=== PATIENT | female | born 1985 | race Hispanic/Latino ===

== ENCOUNTER 2016-04-12 11:30 | Emergency (ER) | payer OTHER ==
[~2016-04-12] VITALS: Ht 165.1 cm; Wt 99.8 kg
[~2016-04-12 11:30] MED LIST: AMOXICILLIN500 MG PO; BACTRIM DS TAB1 EACH PO; BENTYL10 M1 PO; BENTYL10 MG PO; BENTYL20 M1 PO; BENTYL20 MG PO; CIPRO500 MG PO; DONNATAL TABL16.2 MG PO; DONNATAL TABS1 TAB PO; FERRALET 901 TAB PO; FLEXERIL10 MG PO; FLUVIRIN 245 MCG/0.1 IM; HYDROCODONE/ACE1 TA1 PO; IBU800 MG PO; IBUPROFEN800 M1 PO; IBUPROFEN800 MG PO; LOMOTIL 0.025 M1 TAB PO; MACROBID 100 M100 MG PO; MEDROL DOSEPAK1 PAC PO; MIRENA1 EACH; MONTELUKAST SOD10 MG PO; MOTRIN800 MG PO; PATADAY2.5 ML OPH; PHENERGAN25 M1 PO; PREDNISONE20 M1 PO; PRENATAL1 TA2 PO; PRILOSEC OTC20 MG PO; PROAIR HFA8.5 GM INH; PYRIDIUM100 M1 PO; ROBITUSSIN W/CO10 ML PO; TRAMADOL HCL50 M1 PO; TRAMADOL50 MG PO; TYLENOL #31 TAB PO; VICODIN5-300 PO; ZITHROMAX250 M2 PO; ZOFRAN 4 MG TABL4 MG PO; ZOFRAN ODT4 M1 PO; ZOFRAN ODT4 M1 SL; ZOFRAN ODT4 MG PO; ZOFRAN ODT4 MG SL; ZOFRAN4 M1 SL; ZOFRAN4 M2 PO; ZYRTEC10 M3 PO
[2016-04-12 11:41] VITALS: BP 117/82
--- NOTE | 2016-04-12 14:02 | ED INFLUENZA/URI COMPLAINT ---
History of Present Illness General Chief Complaint: Upper Respiratory Sx/Fever Stated Complaint: URI COUGH Source: patient, old records Exam Limitations: no limitations Vital Signs & Intake/Output Vital Signs & Intake/Output Vital Signs Date Time Temp Pulse Resp B/P Pulse O2 O2 Flow FiO2 Ox Delivery Rate 04/12 1141 97.1 92 20 117/82 96 Room Air Allergies Coded Allergies: acetaminophen (From PERCOCET) (Severe, N/V 02/01/16) oxycodone (VOMITING 05/22/15) Reconcile Medications Albuterol Sulfate (Albuterol Sulfate Hfa) 0.09 MG/Actuation ANGIE 2 PUFF INH PRN SOB (Reported) 90 MCG PER PUFF Azithromycin (Zithromax) 250 MG TABLET 1 DP PO AD bronchitis 2 the first day followed by 1 for days 2-5 CETIRIZINE HCL (Zyrtec) 10 MG CAPSULE 1 CAP PO DAILY ALLERGIES (Reported) Dicyclomine Hydrochloride (Bentyl) 10 MG CAPSULE 1 CAP PO TID PRN abdominal spasms Ibuprofen 800 MG TABLET 1 TAB PO TID PRN PAIN Levonorgestrel (Mirena) 1 EACH IUD CONTROL (Reported) Nitrofurantoin Monohyd/M-Cryst (Macrobid 100 MG Capsule) 100 MG CAPSULE 1 CAP PO BID PRN UTI with food Olopatadine HCl (Pataday) 2.5 ML DROPS 1 GTT OPH DAILY ALLERGIES (Reported) Ondansetron (Zofran Odt) 4 MG TAB.RAPDIS 1 TAB SL TID PRN nausea Phenazopyridine HCl (Pyridium) 100 MG TABLET 1 TAB PO TID PRN DYSURIA Phenobarb/Hyoscy/Atropine/Scop ( Tablet) 16.2 MG TABLET 1 TAB PO TID PRN ABDOMINAL PAIN Prednisone 20 MG TABLET 2 TAB PO DAILY bronchitis Sulfamethoxazole/Trimethoprim (Bactrim Ds Tablet) 800 MG-160 MG TABLET 1 TAB PO BID uti Triage Note: PT C/O COLD SYMPTOMS X 2 DAYS. PT STATES HER BODY ACHES AND HER ASTHMA IS ACTING UP Triage Nurses Notes Reviewed? yes : No Patient currently breastfeeds: No HPI: 31-year-old female history of asthma here with complaints of URI symptoms cough congestion and sneezing runny nose bodyaches, productive sputum and rhinorrhea for the last 2 days. Tactile fever. Her mother is also here and sick with the same symptoms. She tried [id number] medication with minimal relief (ZARA MACHUCA) Past History Travel History Traveled to [place] past 21 day No Medical History Any Pertinent Medical History? see below for history Neurological: NONE EENT: allergies Cardiovascular: NONE Respiratory: asthma Gastrointestinal: GASTRITIS Hepatic: cholecystitis, CHOLYCYSTECTOMY Renal: nephrolithiasis Musculoskeletal: NONE Psychiatric: NONE Endocrine: NONE Blood Disorders: NONE BACK HANGER/Reproductive: NONE Surgical History Surgical History: cholecystectomy, , tonsillectomy tubes in the ear Psychosocial History What is your primary language Uzbek Tobacco Use: Current Daily Use Daily Tobacco Use Amount/Type: => 5 Cigarettes daily ETOH Use: denies use Illicit Drug Use: denies illicit drug use Family History Hx Contributory? No (ZARA MACHUCA) Review of Systems Review of Systems Constitutional: Reports: see HPI. EENTM: Reports: see HPI. Respiratory: Reports: see HPI. Cardiovascular: Reports: no symptoms. GI: Reports: no symptoms. Genitourinary: Reports: no symptoms. Musculoskeletal: Reports: no symptoms. Skin: Reports: no symptoms. Neurological/Psychological: Reports: no symptoms. Hematologic/Endocrine: Reports: no symptoms. Immunologic/Allergic: Reports: no symptoms. All Other Systems: Reviewed and Negative (ZARA MACHUCA) Physical Exam Physical Exam General Appearance: well developed/nourished Ears, Nose, Throat: moist mucous membrane, hearing grossly normal, Tympanic normal, pharynx normal, nasal congestion, nasal drainage Comments: Well-developed well-nourished person in no acute distress Neck: Supple, no lymphadenopathy, normal range of motion without pain or tenderness Back: Nontender, no CVA tenderness. Full range of motion Cardiovascular: Regular rate and rhythms no murmurs, normal JVP Respiratory: Chest nontender. No respiratory distress. Breath sounds clear to auscultation bilaterally Abdomen: Soft, nontender nondistended, no appreciable organomegaly. Normal bowel sounds. No ascites Extremity: No edema, no calf tenderness to palpation, normal and equal pulses. Neuro: Alert oriented x3, motor sensory normal, cranial nerves II through XII grossly intact. Skin: No appreciable rash on exposed skin, skin is warm and dry. Psych: Mood and affect is normal, memory and judgment is normal. Core Measures Severe Sepsis Present: No Septic Shock Present: No (ZARA MACHUCA) Progress Differential Diagnosis: influenza, meningitis, neutropenia, otitis, pneumonia, pharyngitis, sinusitis Plan of Care: Orders Procedure Date/time Status RAPID VIRAL INFLUENZA A 04/12 1357 Complete Initial ED EKG: none Comments: FLU TEST NEG. TX WITH ZITHROMAX FOR BRONCHITIS, + SMOKER (ZARA MACHUCA) Departure Departure Disposition: HOME OR SELF CARE Condition: Stable Clinical Impression Primary Impression: Bronchitis Referrals: JOCELYN MESSINA,MEDINA (PCP/Family) Additional Instructions: Take antibiotics for your infection as directed. Take prednisone for body aches and cough Use [id number] multisystem cold medication as needed. Motrin and Tylenol as needed for fever. Drink plenty of fluids. Return or follow-up with your doctor if not better in the next 3-5 days or if you're having continued worsening fevers, nausea, vomiting, shortness of breath, abdominal pain, difficulty swallowing or drinking or worsening flulike illness. Departure Forms: Customer Survey General Discharge Information Prescriptions: Current Visit Scripts Azithromycin (Zithromax) 1 DP PO AD #6 TAB 2 the first day followed by 1 for days 2-5 Prednisone 2 TAB PO DAILY #6 TAB (ZARA MACHUCA) PA/ROOF SERVICE TECHNICIAN Co-Sign Statement Statement: ED Attending supervision documentation- [] I saw and evaluated the patient. I have also reviewed all the pertinent lab results and diagnostic results. I agree with the findings and the plan of care as documented in the PA's/ROOF SERVICE TECHNICIAN's documentation. [X] I have reviewed the ED Record and agree with the PA's/ROOF SERVICE TECHNICIAN's documentation. [] Additions or exceptions (if any) to the PAs/ROOF SERVICE TECHNICIAN's note and plan are summarized below: [] (JUSTIN MESSINA,MARIANO Raza)
[2016-04-12] MEDS ORDERED: PREDNISONE20 M1 PO (14:41)
[2016-04-12] MEDS ORDERED: ZITHROMAX250 M2 PO (14:41)
== END 2016-04-12 14:46 ==
LOC: ERH 11:30
DX: J40 Bronchitis, not specified as acute or chronic (principal); Z72.0 Tobacco use
CPT/HCPCS: 87804; 87804-59; J3101

== ENCOUNTER 2016-04-14 13:11 | Emergency (ER) | payer OTHER ==
[~2016-04-14] VITALS: Ht 165.1 cm; Wt 99.8 kg
--- NOTE | 2016-04-14 13:29 | ED CARDIAC/CP/PALPITATIONS ---
History of Present Illness General Chief Complaint: Chest Pain Stated Complaint: CHEST PAIN Source: patient, old records Exam Limitations: no limitations Vital Signs & Intake/Output Vital Signs & Intake/Output Vital Signs Date Time Temp Pulse Resp B/P Pulse O2 O2 Flow FiO2 Ox Delivery Rate 04/14 1442 97.8 74 16 144/68 98 Room Air 04/14 1440 98 04/14 1321 97.5 102 16 137/84 98 Room Air Allergies Coded Allergies: ketorolac (From TORADOL) (Intermediate, rash 04/14/16) tramadol (Intermediate, RASH 04/14/16) oxycodone (VOMITING 05/22/15) Reconcile Medications Albuterol Sulfate (Albuterol Sulfate Hfa) 0.09 MG/Actuation ANGIE 2 PUFF INH PRN SOB (Reported) 90 MCG PER PUFF Azithromycin (Zithromax) 250 MG TABLET 1 DP PO AD bronchitis 2 the first day followed by 1 for days 2-5 CETIRIZINE HCL (Zyrtec) 10 MG CAPSULE 1 CAP PO DAILY ALLERGIES (Reported) Fexofenadine HCl (Santa Allergy) 180 MG TABLET 1 TAB PO DAILY ALLERGIES ( Reported) Levonorgestrel (Mirena) 1 EACH IUD CONTROL (Reported) Olopatadine HCl (Pataday) 2.5 ML DROPS 1 GTT OPH DAILY ALLERGIES (Reported) Ondansetron (Zofran Odt) 4 MG TAB.RAPDIS 1 TAB SL TID PRN nausea Triage Note: PT STATES THAT SHE WAS SEEN AT [facility] YESTERDAY FOR ABD PAIN, STATES THAT HER HR WAS 128, STATES THAT THEY DIAGNOSED HER WITH A STOMACH BUG , THIS AM AROUD 0900 WHILE AT REST IN BED SHE STARTED WITH L SIDE CP, PAIN HAS BEEN CONSTANT. DESCRIBES STABBING AND NON RADIATING; HR 102 Triage Nurses Notes Reviewed? yes Onset: Abrupt Duration: day(s): (1), constant Timing: recent history Quality/Severity: mild, moderate, aching Location: central Radiation: no radiation Activities at Onset: rest Associated Symptoms: denies : No Patient currently breastfeeds: No HPI: 31-year-old female well-known to this ER presents to emergency room complaining of palpitations and substernal chest heaviness that came on while watching cartoons this morning. The patient states that she was seen yesterday at [facility] for generalized abdominal pain nausea vomiting and diarrhea that has been improving. She was seen here 2 days ago as well for a cough which has resolved. She denies any shortness of breath or pain with inspiration. She states yesterday she told them that while she was having the belly pain she is having palpitations as well. She states the symptoms resolved and was discharged home. She denies any fever chills like pain or swelling. The symptoms are not worse with lying flat or sitting upright there are no modifying factors or associated symptoms otherwise. (GURMEET CALDERA) Past History Travel History Traveled to [facility] past 21 day No Medical History Any Pertinent Medical History? see below for history Neurological: NONE EENT: allergies Cardiovascular: NONE Respiratory: asthma Gastrointestinal: GASTRITIS Hepatic: cholecystitis, CHOLYCYSTECTOMY Renal: nephrolithiasis Musculoskeletal: NONE Psychiatric: NONE Endocrine: NONE Blood Disorders: NONE MOTH EXTERMINATOR/Reproductive: NONE Surgical History Surgical History: cholecystectomy, , tonsillectomy tubes in the ear Psychosocial History What is your primary language Gabonese Tobacco Use: Current Daily Use Daily Tobacco Use Amount/Type: => 5 Cigarettes daily ETOH Use: denies use Illicit Drug Use: denies illicit drug use Family History Hx Contributory? No (GURMEET CALDERA) Review of Systems Review of Systems Constitutional: Reports: see HPI. All Other Systems: Reviewed and Negative Comments Review of systems: See HPI, All other systems negative. Constitutional, no chills no fever, no malaise HEENT: No visual changes no sore throat no congestion, Cardiovascular: chest pain , no palpitation Skin, no jaundice no rashes, no change in skin Respiratory: No dyspnea no cough no sputum GI: nausea vomiting, diarrhea : No dysuria Muscle skeletal: No joint pain, no joint swelling, no back pain Neurologic: No numbness no headache Psych: No stress Heme/endocrine: No bruising no bleeding Immunology: No lymphadenopathy (GURMEET CALDERA) Physical Exam Physical Exam General Appearance: well developed/nourished, no apparent distress, alert, awake , anxious Cardiovascular: regular rate/rhythm Comments: Well-developed well-nourished person in no acute distress HEENT: Normal EENT exam; PERRL, EOMI, HEAD is atraumatic. moist mucous membranes. Neck: Supple, no lymphadenopathy, normal range of motion Back: Nontender, no CVA tenderness. Full range of motion Cardiovascular: Regular rate and rhythms no murmurs rubs or gallops, normal JVP Respiratory: Chest tender.There were no bony deformities, no asymmetry. No respiratory distress. Patient speaking in full complete sentences. Breath sounds clear to auscultation bilaterally: NO W/R/R Abdomen: Soft, nontender nondistended, no appreciable organomegaly. Normal bowel sounds. No rebound/guarding Extremity: No edema, full range of motion of extremities, normal and equal pulses bilaterally, 5 out of 5 strength noted to bilateral upper and lower extremities Neuro: Alert oriented x3, motor sensory normal XII grossly intact. There were no obvious focal neurologic abnormalities. Skin: No appreciable rash on exposed skin, skin is warm and dry. Psych: Mood and affect is normal, memory and judgment is normal. Core Measures ACS in differential dx? Yes Severe Sepsis Present: No Septic Shock Present: No All Positive = PERC Ruled Out: Positive: age < 50 years, heart rate < 100 bpm, O2 sat > 94%, no hemoptysis, no hormone use, no prior DVT or PE, no unilateral leg swellin, no surgery/trauma w/ in 4w. (ANDREE BAUMAN,GURMEET) Progress Differential Diagnosis: AMI, musculoskeletal pain, myocarditis, pancreatitis, pericarditis, pneumonia, pneumothorax, pulmonary embolism, PVCs/PACs, unstable angina, anxiety Plan of Care: Orders Procedure Date/time Status TROPONIN LEVEL 04/14 1324 Complete COMPREHENSIVE METABOLIC PANEL 04/14 1324 Complete CBC WITHOUT DIFFERENTIAL 04/14 1324 Complete EKG 04/14 1313 Active Laboratory Tests 04/14/16 1336: Anion Gap 8, Estimated GFR > 60, BUN/Creatinine Ratio 12.5, Glucose 96, Calcium 9.4, Total Bilirubin 0.3, AST 19, ALT 32, Alkaline Phosphatase 92, Troponin I < 0.01, Total Protein 7.3, Albumin 4.1, Globulin 3.2, Albumin/Globulin Ratio 1.3, CBC w Diff NO MAN DIFF REQ, RBC 4.31, MCV 91.2, MCH 30.7, RDW 12.9, MPV 10.9 H, Gran % 60.1, Lymphocytes % 29.7, Monocytes % 6.7, Eosinophils % 2.6, Basophils % 0.9, Absolute Granulocytes 6.1, Absolute Lymphocytes 3.0, Absolute Monocytes 0.7 H, Absolute Eosinophils 0.3, Absolute Basophils 0.1, PUBS MCHC 33.7 Pain is reproducible chest wall patient is been seen numerous times in the past for similar symptoms currently normal sinus in the 80s to 90s on the monitor patient requesting medication to help her relax old records reviewed case discussed Dr. Xiong 04/14/2016 2:35:43 PM discussed with the patient at length all of her lab results again the pain was reproducible with chest wall, she has been seen numerous times in the past for similar symptoms, PERC NEGATIVE. Eyes close follow-up with her primary care physician return anytime sooner with any concerns she feels comfortable with this plan and answered all her questions (GURMEET CALDERA) Initial ED EKG: normal sinus at 90, no acute ST segment changes normal axis (GURMEET CALDERA) Departure Departure Time of Disposition: 1428 Disposition: HOME OR SELF CARE Condition: Stable Clinical Impression Primary Impression: Atypical chest pain Referrals: JOCELYN MESSINA,MEDINA (PCP/Family) Additional Instructions: Follow-up with your primary care physician on Saturday. Return with any concerns Departure Forms: Customer Survey General Discharge Information (GURMEET CALDERA) PA/STRAIGHTENING MACHINE FEEDER Co-Sign Statement Statement: ED Attending supervision documentation- [] I saw and evaluated the patient. I have also reviewed all the pertinent lab results and diagnostic results. I agree with the findings and the plan of care as documented in the PA's/STRAIGHTENING MACHINE FEEDER's documentation. [X] I have reviewed the ED Record and agree with the PA's/STRAIGHTENING MACHINE FEEDER's documentation. [] Additions or exceptions (if any) to the PAs/STRAIGHTENING MACHINE FEEDER's note and plan are summarized below: [] (JUSTIN MESSINA,MARIANO Raza) Critical Care Note Critical Care Note Critical Care Time: non-applicable (GURMEET CALDERA)
[2016-04-14 13:47] LABS: ABSOLUTE BASOPHIL COUNT 0.1 /CUMM (0.0-0.2); ABSOLUTE EOSINOPHIL COUNT 0.3 /CUMM (0.0-0.7); ABSOLUTE GRANULOCYTE CT 6.1 /CUMM (1.4-6.5); ABSOLUTE MONOCYTE COUNT 0.7 /CUMM (0.10-0.60); BASOPHIL % 0.9 % (0.0-2.0); EOSINOPHIL % 2.6 % (0-5); GRANULOCYTE % 60.1 % (42.2-75.2); HEMATOCRIT 39.3 % (37-47); MEAN CORPUSCULAR HGB 30.7 PG (27.0-31.0); MEAN CORPUSCULAR HGB CONC 33.7 G/DL (33.0-37.0); MEAN CORPUSCULAR VOLUME 91.2 FL (81.0-99.0); MEAN PLATELET VOLUME 10.9 FL (7.4-10.4); PLATELET COUNT 192 /CUMM (130-400); RBC DISTRIBUTION WIDTH 12.9 % (11.5-14.5); RED BLOOD CELL CT 4.31 /CUMM (4.20-5.40); WHITE BLOOD CELL COUNT 10.2 /CUMM (4.8-10.8)
[2016-04-14] MEDS ORDERED: ALLEGRA ALLERG180 M1 PO (14:14)
[2016-04-14 14:42] VITALS: BP 144/68
== END 2016-04-14 14:40 ==
LOC: ERH 13:11
PROVIDERS: Emergency Medicine
DX: R07.89 Other chest pain (principal)
CPT/HCPCS: 93005; 93010

== ENCOUNTER 2016-04-30 16:15 | Emergency (ER) | payer OTHER ==
[~2016-04-30] VITALS: Ht 165.1 cm; Wt 99.8 kg
[~2016-04-30 16:15] MED LIST changes: +ALLEGRA ALLERG180 M1 PO
[2016-04-30 17:02] LABS: ABSOLUTE BASOPHIL COUNT 0 /CUMM (0.0-0.2); ABSOLUTE EOSINOPHIL COUNT 0.5 /CUMM (0.0-0.7); ABSOLUTE GRANULOCYTE CT 7.1 /CUMM (1.4-6.5); ABSOLUTE LYMPH COUNT 1.7 /CUMM (1.2-3.4); ABSOLUTE MONOCYTE COUNT 0.5 /CUMM (0.10-0.60); BASOPHIL % 0.4 % (0.0-2.0); EOSINOPHIL % 5.1 % (0-5); HEMATOCRIT 41.1 % (37-47); MEAN CORPUSCULAR HGB 30.9 PG (27.0-31.0); MEAN CORPUSCULAR HGB CONC 33.8 G/DL (33.0-37.0); MEAN CORPUSCULAR VOLUME 91.6 FL (81.0-99.0); MEAN PLATELET VOLUME 10.7 FL (7.4-10.4); PLATELET COUNT 173 /CUMM (130-400); RBC DISTRIBUTION WIDTH 12.7 % (11.5-14.5); RED BLOOD CELL CT 4.49 /CUMM (4.20-5.40); WHITE BLOOD CELL COUNT 9.9 /CUMM (4.8-10.8)
--- NOTE | 2016-04-30 17:50 | ED GI/GU/ABDOMINAL COMPLAINT ---
History of Present Illness General Chief Complaint: Abdominal Pain/Flank Pain Stated Complaint: ABD PAIN Source: patient Exam Limitations: no limitations Vital Signs & Intake/Output Vital Signs & Intake/Output Vital Signs Date Time Temp Pulse Resp B/P Pulse O2 O2 Flow FiO2 Ox Delivery Rate 04/30 1999 97.0 83 18 142/66 98 Room Air 04/30 1817 98.3 04/30 1800 98 04/30 1623 98.3 92 18 125/84 98 Room Air Allergies Coded Allergies: ketorolac (From TORADOL) (Intermediate, rash 04/14/16) tramadol (Intermediate, RASH 04/14/16) oxycodone (VOMITING 05/22/15) Triage Note: REPORTS ABD PAIN SINCE THIS AM. + N/V/D, DENIED FEVER. Triage Nurses Notes Reviewed? yes ? N Is pt currently ? No HPI: tHIS PATIENT is a 31-year-old female who presented to the emergency department today for evaluation of right-sided abdominal pain. The patient reported that the pain began this morning. The pain gets up to an 8 out of 10 and sharp. It is nonradiating. She occasionally feels some right flank pain. The pain has been constant since onset. No provoking or palliative factors. The patient denied any urinary burning, urgency, frequency or blood in the urine. She does have a history of cholecystectomy. She reported chills, but no fevers. She reported associated nausea and one episode of vomiting here in the emergency department. She denied any diarrhea or blood in the stool or vomitus. She denied any chest pain or difficulty breathing. (DALJIT MARAVILLA,SILVINO) Reconcile Medications Albuterol Sulfate (Albuterol Sulfate Hfa) 0.09 MG/Actuation ANGIE 2 PUFF INH PRN SOB (Reported) 90 MCG PER PUFF CETIRIZINE HCL (Zyrtec) 10 MG CAPSULE 1 CAP PO DAILY ALLERGIES (Reported) Fexofenadine HCl (Santa Allergy) 180 MG TABLET 1 TAB PO DAILY ALLERGIES ( Reported) Levonorgestrel (Mirena) 1 EACH IUD CONTROL (Reported) Lidocaine (Unknown Strength) ADH..PATCH (Unknown Dose) UNKNOWN (Reported) Montelukast Sodium 10 MG TABLET 1 TAB PO DAILY ALLERGIES (Reported) Ondansetron (Zofran Odt) 4 MG TAB.RAPDIS 1 TAB SL TID PRN NAUSEA (JUSTIN MESSINA,MARIANO Raza) Past History Travel History Traveled to [place] past 21 day No Medical History Any Pertinent Medical History? see below for history Neurological: NONE EENT: allergies Cardiovascular: NONE Respiratory: asthma Gastrointestinal: GASTRITIS Hepatic: cholecystitis, CHOLYCYSTECTOMY Renal: nephrolithiasis Musculoskeletal: NONE Psychiatric: NONE Endocrine: NONE Blood Disorders: NONE MEDICAL OFFICE SECRETARY/Reproductive: NONE Surgical History Surgical History: cholecystectomy, , tonsillectomy tubes in the ear Psychosocial History What is your primary language North Korean Tobacco Use: Current Daily Use Daily Tobacco Use Amount/Type: => 5 Cigarettes daily Family History Hx Contributory? No (SILVINO BOCANEGRA PA-C) Review of Systems Review of Systems Constitutional: Reports: see HPI. EENTM: Reports: no symptoms. Respiratory: Reports: no symptoms. Cardiovascular: Reports: no symptoms. GI: Reports: see HPI. Genitourinary: Reports: no symptoms. Musculoskeletal: Reports: see HPI. Skin: Reports: no symptoms. Neurological/Psychological: Reports: no symptoms. All Other Systems: Reviewed and Negative (SILVINO BOCANEGRA PA-C) Physical Exam Physical Exam Gastrointestinal: normal bowel sounds, soft, no organomegaly, TENDERNESS TO PALPATION IN THE RIGHT UPPER QUADRANT WITH NO REBOUND OR GUARDING. nO mCbURNEY' S POINT TENDERNESS. nEGATIVE rOVSING SIGN. nEGATIVE PSOAS SIGN. nO REBOUND OR GUARDING. nO PERITONEAL SIGNS. nO MASSES APPRECIATED Comments: Well-developed well-nourished person in no acute distress HEENT: Normal EENT exam, head normocephalic, moist mucous membranes PERRLA bilaterally Neck: Supple with no lymphadenopathy Back: Normal gait. Normal inspection with no CVA tenderness or midline tenderness Cardiovascular: Regular rate and rhythm with no murmurs, rubs, or gallops Respiratory: Chest nontender. No respiratory distress. Breath sounds clear to auscultation bilaterally Extremity: Normal and equal pulses Neuro: Alert oriented x3, cranial nerves II through XII grossly intact. Skin: No appreciable rash on exposed skin, skin is warm and dry. Psych: Mood and affect is normal Core Measures ACS in differential dx? No Severe Sepsis Present: No Septic Shock Present: No (SILVINO BOCANEGRA PA-C) Progress Differential Diagnosis: appendicitis, biliary colic, bowel obstruction, colon cancer, diverticulitis, ectopic , endometritis, gastritis, hepatitis, inflamm bowel dis, intrauterine , kidney stone, ovarian cyst, ovarian torsion, pancreatitis, PID/cervicitis, PUD/GERD, perforated viscous, threatened AB, UTI/pyelo Plan of Care: Orders Procedure Date/time Status Add-on Test (ER Only) 04/30 1729 Active RAPID VIRAL INFLUENZA A 04/30 1729 Complete URINE 04/30 1729 Complete LIPASE 04/30 165 Complete DIRECT BILIRUBIN 04/30 165 Complete AMYLASE 04/30 165 Complete URINALYSIS 04/30 164 Complete LACTIC ACID 04/30 164 Complete COMPREHENSIVE METABOLIC PANEL 04/30 164 Complete CBC WITHOUT DIFFERENTIAL 04/30 1647 Complete Current Medications Sig/Balbina Start time Last Medication Dose Stop Time Status Admin Ondansetron HCl 4 MG ONCE ONE 04/30 174 CAN (Zofran) 04/30 174 Sodium Chloride 1,000 ML BOLUS ONE 04/30 173 CAN (Normal Saline 0.9%) 04/30 182 Laboratory Tests 04/30/16 174: Urine Test NEGATIVE 04/30/161743: Urine Color YEL, Urine Clarity HAZY H, Urine pH 7.5, Ur Specific [place] 1.020, Urine Protein TRACE H, Urine Ketones NEG, Urine Nitrite NEG, Urine Bilirubin NEG, Urine Urobilinogen 2.0 H, Ur Leukocyte Esterase NEG, Ur Microscopic SEDIMENT EXAMINED, Urine RBC 5-10 H, Urine WBC RARE, Ur Epithelial Cells MANY H, Granular Casts RARE H, Urine Hemoglobin MOD H, Urine Glucose NEG 04/30/16 165: Anion Gap 9, Estimated GFR > 60, BUN/Creatinine Ratio 12.5, Glucose 98, Lactic Acid 0.8, Calcium 9.5, Total Bilirubin 0.4, Direct Bilirubin 0.4, AST 21, ALT 35 , Alkaline Phosphatase 89, Total Protein 7.4, Albumin 4.2, Globulin 3.2, Albumin /Globulin Ratio 1.3, Amylase 46, Lipase 42, CBC w Diff NO MAN DIFF REQ, RBC 4.49 , MCV 91.6, MCH 30.9, RDW 12.7, MPV 10.7 H, Gran % 72.0, Lymphocytes % 17.2 L, Monocytes % 5.3, Eosinophils % 5.1 H, Basophils % 0.4, Absolute Granulocytes 7.1 H, Absolute Lymphocytes 1.7, Absolute Monocytes 0.5, Absolute Eosinophils 0.5, Absolute Basophils 0, PUBS MCHC 33.8 Diagnostic Imaging: Viewed by Me: Ultrasound. Discussed w/RAD: Ultrasound. Radiology Impression: PATIENT: JESSICA REYES PRESENT AGE: 31 PATIENT ACCOUNT NO: [id number] : 84 LOCATION: [facility] ORDERING PHYSICIAN: SILVINO BOCANEGRA PA-C SERVICE DATE: 04/30/16 EXAM TYPE: US - US-RENAL/KIDNEY EXAMINATION: US RETROPERITONEAL COMPLETE (RENAL) CLINICAL INFORMATION: Evaluate for nephrolithiasis. Right-sided pain.. COMPARISON: CT scan of abdomen and pelvis 02/01/2016. TECHNIQUE: Real-time imaging of the kidneys and bladder. FINDINGS: RIGHT KIDNEY: 11.0 x 4.7 x 6.4 cm (SAG x AP x TRV). The kidney is normal in size, contour, and echogenicity. Renal cortical thickness is normal. No calculi or focal parenchymal lesions. No hydronephrosis. LEFT KIDNEY: 10.7 x 5.9 x 5.8 cm (SAG x AP x TRV). The kidney is normal in size, contour, and echogenicity. Renal cortical thickness is normal. There is a single nonobstructing calculus located within a lower pole calyx left kidney that measures 0.5 mm in maximal dimension. BLADDER: The patient voided prior to imaging therefore the bladder could not be well assessed on this examination. Bilateral ureteral jets were however visualized confirming ureteral patency. IMPRESSION: There is a single nonobstructive calculus located within a lower pole calyx of the left kidney measuring 0.5 cm in maximal length. Otherwise unremarkable renal ultrasound with no hydroureteronephrosis. Bilateral ureteral jets were visualized within the bladder confirming ureteral patency. DICTATED BY: CLEMENCIA LUTZ MD DATE/TIME DICTATED:04/30/161936 COMPUTATIONAL LINGUIST:OUMOU DATE/TIME TRANSCRIBED:04/30/161936 CONFIDENTIAL, DO NOT COPY WITHOUT APPROPRIATE AUTHORIZATION. <Electronically signed in Other Vendor System> SIGNED BY: CLEMENCIA LUTZ MD 04/30/161944 Initial ED EKG: none (DALJIT MARAVILLA,SILVINO) Departure Departure Disposition: HOME OR SELF CARE Condition: Stable Clinical Impression Primary Impression: Abdominal pain Qualifiers: Abdominal location: unspecified location Qualified Code: R10.9 - Unspecified abdominal pain Referrals: JOCELYN MESSINA,MEDINA (PCP/Family) Additional Instructions: Please takes Zofran as prescribed for nausea. Take [id number] Motrin or Tylenol for pain. Please rest and be sure to stay hydrated. For any persistent symptoms, please follow-up with your primary care physician. Return for any worsening symptoms or concerns. Departure Forms: Customer Survey General Discharge Information Prescriptions: Current Visit Scripts Ondansetron (Zofran Odt) 1 TAB SL TID PRN NAUSEA #10 TAB (DALJIT MARAVILLA,SILVINO) PA/ERADICATOR Co-Sign Statement Statement: ED Attending supervision documentation- [] I saw and evaluated the patient. I have also reviewed all the pertinent lab results and diagnostic results. I agree with the findings and the plan of care as documented in the PA's/ERADICATOR's documentation. [X] I have reviewed the ED Record and agree with the PA's/ERADICATOR's documentation. [] Additions or exceptions (if any) to the PAs/ERADICATOR's note and plan are summarized below: [] (JUSTIN MESSINA,MARIANO Raza)
[2016-04-30] MEDS ORDERED: MONTELUKAST SOD10 M1 PO (17:52)
[2016-04-30] MEDS ORDERED: LIDOCAINE1 EACH (17:53)
--- NOTE | 2016-04-30 19:45 | ULTRASOUND REPORT ---
EXAMINATION: US RETROPERITONEAL COMPLETE (RENAL) CLINICAL INFORMATION: Evaluate for nephrolithiasis. Right-sided pain.. COMPARISON: CT scan of abdomen and pelvis 02/01/2016. TECHNIQUE: Real-time imaging of the kidneys and bladder. FINDINGS: RIGHT KIDNEY: 11.0 x 4.7 x 6.4 cm (SAG x AP x TRV). The kidney is normal in size, contour, and echogenicity. Renal cortical thickness is normal. No calculi or focal parenchymal lesions. No hydronephrosis. LEFT KIDNEY: 10.7 x 5.9 x 5.8 cm (SAG x AP x TRV). The kidney is normal in size, contour, and echogenicity. Renal cortical thickness is normal. There is a single nonobstructing calculus located within a lower pole calyx left kidney that measures 0.5 mm in maximal dimension. BLADDER: The patient voided prior to imaging therefore the bladder could not be well assessed on this examination. Bilateral ureteral jets were however visualized confirming ureteral patency. IMPRESSION: There is a single nonobstructive calculus located within a lower pole calyx of the left kidney measuring 0.5 cm in maximal length. Otherwise unremarkable renal ultrasound with no hydroureteronephrosis. Bilateral ureteral jets were visualized within the bladder confirming ureteral patency.
[2016-04-30] MEDS ORDERED: ZOFRAN ODT4 M1 SL (19:52)
[2016-04-30 20:00] VITALS: BP 142/66
== END 2016-04-30 20:02 ==
LOC: ERH 16:15
PROVIDERS: Emergency Medicine
DX: R10.11 Right upper quadrant pain (principal)
CPT/HCPCS: 76775; 81001; 81025; 87804; 87804-59; J3101

== ENCOUNTER 2016-06-22 18:26 | Emergency (ER) | payer OTHER ==
[~2016-06-22] VITALS: Ht 165.1 cm; Wt 95.3 kg
[~2016-06-22 18:26] MED LIST changes: +LIDOCAINE1 EACH; +MONTELUKAST SOD10 M1 PO
--- NOTE | 2016-06-22 19:24 | ED GI/GU/ABDOMINAL COMPLAINT ---
History of Present Illness General Chief Complaint: Abdominal Pain/Flank Pain Stated Complaint: PT IS HERE FOR ABDOMINAL PAIN SINCE AM Source: patient, old records Exam Limitations: no limitations Vital Signs & Intake/Output Vital Signs & Intake/Output Vital Signs Date Time Temp Pulse Resp B/P Pulse O2 O2 Flow FiO2 Ox Delivery Rate 06/22 2006 Room Air 06/22 1854 98.2 83 18 124/81 98 Room Air Allergies Coded Allergies: ketorolac (From TORADOL) (Intermediate, rash 04/14/16) tramadol (Intermediate, RASH 04/14/16) oxycodone (VOMITING 05/22/15) Reconcile Medications Albuterol Sulfate (Proair Hfa) 90 MCG HFA.AER.AD 2 PUF INH PRN SOB (Reported) Cetirizine HCl (Zyrtec) 10 MG TABLET 1 TAB PO DAILY ALLERGIES (Reported) Fexofenadine HCl (Santa Allergy) 180 MG TABLET 1 TAB PO DAILY ALLERGIES ( Reported) Ibuprofen 800 MG TABLET 1 TAB PO TID PRN pain Levonorgestrel (Mirena) 1 EACH IUD CONTROL (Reported) Metoclopramide HCl (Reglan) (Unknown Strength) TABLET (Unknown Dose) UNKNOWN (Reported) Montelukast Sodium 10 MG TABLET 1 TAB PO DAILY ALLERGIES (Reported) Ondansetron (Zofran Odt) 4 MG TAB.RAPDIS 1 TAB SL TID PRN nausea Triage Note: RECEIVED 31 YO FEMALE C/O RIGHT LOWER ABDOMINAL PAIN, STARTED 12 NOON TODAY WITH NAUSEA, VOMITING AND DIARRHEA. LMP 04/09, PT HAS MIRENA RING Triage Nurses Notes Reviewed? yes LMP (ages 10-50): 03/2015 ? n Is pt currently ? No Onset: Abrupt Duration: day(s): (1), constant, waxing and waning Timing: recent history Quality/Severity: aching, cramping Severity Numbers: 5 Location: left lower quadrant, right lower quadrant Radiation: no radiation Activities at Onset: none Prior Abdominal Problems: similar symptoms No Modifying Factors: none Associated Symptoms: diarrhea, nausea/vomiting HPI: 31-year-old female well-known to this ER presents the ER tonight for evaluation complaining of a one-day history of lower, pain cramping aching nonradiating associated with 3 episodes of nausea vomiting and diarrhea. Patient reports positive nausea at this time. She is not taken anything for her pain. Patient has been seen numerous times in the past for similar symptoms. No fever no chills. No urinary urgency frequency dysuria materia. Patient has Mirena, denies chance of . No back pain chest pain shortness of breath Past History Travel History Traveled to [place] past 21 day No Medical History Any Pertinent Medical History? 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 No Review of Systems Review of Systems Constitutional: Reports: see HPI. All Other Systems: Reviewed and Negative Comments Review of systems: See HPI, All other systems negative. Constitutional, no chills no fever, no malaise HEENT: No visual changes no sore throat no congestion Cardiovascular: No chest pain , no palpitation , Skin, no rashes, no change in skin Respiratory: No dyspnea no cough no sputum GI: nausea vomiting, (+) diarrhea : no frequency, no discharge Muscle skeletal: No joint pain, no back pain, no neck pain, Neurologic: No numbness no confusion, no headache Psych: No stress Heme/endocrine: No bruising no bleeding Immunology: No lymphadenopathy Physical Exam Physical Exam General Appearance: well developed/nourished, alert, awake Gastrointestinal: soft, non-tender Comments: Well-developed well-nourished person in no acute distress HEENT: Normal EENT exam; PERRL, EOMI, HEAD is atraumatic. moist mucous membranes. Neck: Supple, normal range of motion Back: Nontender, no CVA tenderness. Full range of motion Cardiovascular: Regular rate and rhythms no murmurs rubs Respiratory: Chest nontender.There were no bony deformities, no asymmetry. No respiratory distress. Patient speaking in full complete sentences. Breath sounds clear to auscultation bilaterally: NO W/R/R Abdomen: Soft, diffusely tender, negative Rovsing's negative out greater sign nondistended, no appreciable organomegaly. Normal bowel sounds. No rebound/ guarding Extremity: No edema, full range of motion of extremities Neuro: Alert oriented x3, motor sensory normal, There were no obvious focal neurologic abnormalities. Skin: No appreciable rash on exposed skin, skin is warm and dry. No jaundice no diaphoresis Psych: Mood and affect is normal, memory and judgment is normal. Core Measures ACS in differential dx? No Severe Sepsis Present: No Septic Shock Present: No Progress Differential Diagnosis: AAA, AMI, appendicitis, bowel obstruction, colon cancer, diverticulitis, ectopic , gastritis, inflamm bowel dis, pancreatitis, peptic ulcer, PUD/GERD, perforated viscous, SBO, UTI/pyelo Plan of Care: Orders Procedure Date/time Status HUMAN BETA HCG SCREEN 06/23 1919 Complete COMPREHENSIVE METABOLIC PANEL 06/23 1919 Complete CBC WITHOUT DIFFERENTIAL 06/23 1919 Complete URINE 06/22 1852 Complete URINALYSIS 06/22 1852 Complete Laboratory Tests 06/22/161927: Anion Gap 10, Estimated GFR > 60, BUN/Creatinine Ratio 11.4, Glucose 91, Calcium 9.9, Total Bilirubin 0.4, AST 22, ALT 37, Alkaline Phosphatase 105, Total Protein 7.7, Albumin 4.2, Globulin 3.5, Albumin/Globulin Ratio 1.2, Total Beta HCG NEGATIVE, CBC w Diff NO MAN DIFF REQ, RBC 4.55, MCV 90.4, MCH 30.4, RDW 13.0 , MPV 10.8 H, Gran % 65.3, Lymphocytes % 23.3, Monocytes % 5.8, Eosinophils % 5.2 H, Basophils % 0.4, Absolute Granulocytes 6.8 H, Absolute Lymphocytes 2.4, Absolute Monocytes 0.6, Absolute Eosinophils 0.5, Absolute Basophils 0, PUBS MCHC 33.6 06/22/161921: Urinalysis LIGHT H, Urine Color YEL, Urine Clarity HAZY H, Urine pH 6.0, Ur Specific [place] 1.025, Urine Protein 30 H, Urine Ketones TRACE H, Urine Nitrite NEG, Urine Bilirubin NEG, Urine Urobilinogen 1.0, Ur Leukocyte Esterase NEG, Ur Microscopic SEDIMENT EXAMINED, Urine RBC 3-5, Urine WBC 3-5 H, Ur Epithelial Cells MOD H, Urine Bacteria MOD H, Urine Mucus MOD H, Urine Hemoglobin MOD H, Urine Glucose NEG, Urine Test NEGATIVE Patient well known to this ER medicated with ODT Zofran labs ordered old records reviewed On repeat evaluation patient has had no episodes of nausea or vomiting in the department. Patient had numerous CAT scans in the past with no known abnormality identified she is diffusely tender nontoxic-appearing however on exam no rebound or guarding tolerating by mouth challenge I discussed the patient's symptoms are most likely viral in etiology for supportive care bland diet Zofran and clear liquids advance as tolerated. I discussed with her the possibility of appendicitis need to return immediately for symptoms worsen or she has any other concerns she feels comfortable plan cleared for discharge (ANDREE BAUMAN,GURMEET) Initial ED EKG: none Departure Departure Time of Disposition: 2029 Disposition: HOME OR SELF CARE Condition: Stable Clinical Impression Primary Impression: Abdominal pain Secondary Impressions: Nausea vomiting and diarrhea Referrals: PATIENT HAS NO PRIMARY CARE DR (PCP/Family) Additional Instructions: [place] diet clear liquids-and advance diet as tolerated Zofran as needed for nausea Tylenol or Motrin as needed. Follow-up with your primary care physician on Saturday, return anytime sooner if any concerns. Departure Forms: Customer Survey General Discharge Information Prescriptions: Current Visit Scripts Ondansetron (Zofran Odt) 1 TAB SL TID PRN nausea #10 TAB Ibuprofen 1 TAB PO TID PRN pain #30 TAB
[2016-06-22] MEDS ORDERED: REGLAN10 M1 (19:26)
[2016-06-22 19:45] LABS: ABSOLUTE BASOPHIL COUNT 0 /CUMM (0.0-0.2); ABSOLUTE EOSINOPHIL COUNT 0.5 /CUMM (0.0-0.7); ABSOLUTE GRANULOCYTE CT 6.8 /CUMM (1.4-6.5); ABSOLUTE LYMPH COUNT 2.4 /CUMM (1.2-3.4); ABSOLUTE MONOCYTE COUNT 0.6 /CUMM (0.10-0.60); BASOPHIL % 0.4 % (0.0-2.0); EOSINOPHIL % 5.2 % (0-5); GRANULOCYTE % 65.3 % (42.2-75.2); HEMATOCRIT 41.2 % (37-47); MEAN CORPUSCULAR HGB 30.4 PG (27.0-31.0); MEAN CORPUSCULAR HGB CONC 33.6 G/DL (33.0-37.0); MEAN CORPUSCULAR VOLUME 90.4 FL (81.0-99.0); MEAN PLATELET VOLUME 10.8 FL (7.4-10.4); PLATELET COUNT 210 /CUMM (130-400); RED BLOOD CELL CT 4.55 /CUMM (4.20-5.40); WHITE BLOOD CELL COUNT 10.4 /CUMM (4.8-10.8)
[2016-06-22] MEDS ORDERED: IBUPROFEN800 M1 PO (20:32)
[2016-06-22] MEDS ORDERED: ZOFRAN ODT4 M1 SL (20:32)
[2016-06-22 20:57] VITALS: BP 122/76
== END 2016-06-22 20:57 ==
LOC: ERH 18:26
PROVIDERS: Physician Assistant Medical
DX: R11.2 Nausea with vomiting, unspecified (principal); R19.7 Diarrhea, unspecified; R10.31 Right lower quadrant pain
CPT/HCPCS: 81001; 81025; J3101

== ENCOUNTER 2016-06-28 16:08 | Emergency (ER) | payer OTHER ==
[~2016-06-28] VITALS: Ht 165.1 cm; Wt 95.3 kg
[~2016-06-28 16:08] MED LIST changes: +REGLAN10 M1
--- NOTE | 2016-06-28 16:26 | ED DYSPNEA/ASTHMA COMPLAINT ---
History of Present Illness General Chief Complaint: Upper Respiratory Sx/Fever Stated Complaint: COUGH Source: patient, family, old records Exam Limitations: no limitations Vital Signs & Intake/Output Vital Signs & Intake/Output Vital Signs Date Time Temp Pulse Resp B/P Pulse O2 O2 Flow FiO2 Ox Delivery Rate 06/28 1614 97.6 85 18 129/89 100 Room Air Allergies Coded Allergies: ketorolac (From TORADOL) (Intermediate, rash 04/14/16) tramadol (Intermediate, RASH 04/14/16) oxycodone (VOMITING 05/22/15) Reconcile Medications Albuterol Sulfate (Proair Hfa) 90 MCG HFA.AER.AD 2 PUF INH PRN SOB (Reported) Amoxicillin 500 MG TABLET 1 TAB PO TID BRONCHITIS Benzonatate (Tessalon Perle) 100 MG CAPSULE 1 CAP PO TID PRN COUGH Cetirizine HCl (Zyrtec) 10 MG TABLET 1 TAB PO DAILY ALLERGIES (Reported) Fexofenadine HCl (Santa Allergy) 180 MG TABLET 1 TAB PO DAILY ALLERGIES ( Reported) Ibuprofen 800 MG TABLET 1 TAB PO TID PRN pain Ibuprofen 600 MG TABLET 1 TAB PO TID PRN PAIN with food Levonorgestrel (Mirena) 1 EACH IUD CONTROL (Reported) Metoclopramide HCl (Reglan) (Unknown Strength) TABLET (Unknown Dose) UNKNOWN (Reported) Montelukast Sodium 10 MG TABLET 1 TAB PO DAILY ALLERGIES (Reported) Ondansetron (Zofran Odt) 4 MG TAB.RAPDIS 1 TAB SL TID PRN nausea Triage Note: PT TO ED FOR NON-PRODUCTIVE COUGH X 4 DAYS. Triage Nurses Notes Reviewed? yes : No Patient currently breastfeeds: No HPI: Patient presents with 2 complaints. First complaint is right flank pain. Patient has a history of a kidney stone on the right side. The pain is throbbing in nature. The pain is constant. There are no aggravating or mitigating factors. There is no radiation. The patient rates the pain a 7 out of 10. Patient complaint is a productive cough that is worse at night. Patient denies any chest pain or chest tightness. There is no orthopnea. No fevers were positive chills. No nausea or vomiting. Past History Travel History Traveled to [place] past 21 day No Medical History Any Pertinent Medical History? 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 No Review of Systems Review of Systems Constitutional: Reports: no symptoms. EENTM: Reports: no symptoms. Respiratory: Reports: see HPI, cough, sputum production. Cardiovascular: Reports: no symptoms. GI: Reports: see HPI, abdominal pain. Genitourinary: Reports: see HPI, dysuria. Musculoskeletal: Reports: see HPI, back pain. Skin: Reports: no symptoms. Neurological/Psychological: Reports: no symptoms. Hematologic/Endocrine: Reports: no symptoms. Immunologic/Allergic: Reports: no symptoms. All Other Systems: Reviewed and Negative Physical Exam Physical Exam General Appearance: well developed/nourished, alert, awake Head: atraumatic, normal appearance Eyes: Bilateral: PERRL, EOMI. Ears, Nose, Throat: normal pharynx, normal ENT inspection Neck: normal inspection, supple, full range of motion Respiratory: normal breath sounds, chest non-tender, no respiratory distress, lungs clear Cardiovascular: regular rate/rhythm, normal peripheral pulses Gastrointestinal: normal bowel sounds, soft, no organomegaly, tenderness ( SUPRAPUBIC) Extremities: normal inspection, normal capillary refill, normal range of motion, no edema Neurologic/Psych: no motor/sensory deficits, awake, alert, oriented x 3, normal gait, normal mood/affect Skin: intact, normal color, warm/dry Lymphatic: no anterior cervical michael Core Measures ACS in differential dx? No Severe Sepsis Present: No Septic Shock Present: No Progress Differential Diagnosis: asthma, bronchitis, pneumonia Plan of Care: Orders Procedure Date/time Status URINE 06/28 1648 Complete URINALYSIS 06/28 1648 Complete Laboratory Tests 06/28/16 1727: Urine Color YEL, Urine Clarity CLEAR, Urine pH 6.0, Ur Specific [place] 1.015, Urine Protein NEG, Urine Ketones NEG, Urine Nitrite NEG, Urine Bilirubin NEG, Urine Urobilinogen 0.2, Ur Leukocyte Esterase NEG, Ur Microscopic SEDIMENT EXAMINED, Urine RBC 3-5, Urine WBC RARE, Ur Epithelial Cells MOD H, Urine Bacteria RARE H, Urine Hemoglobin MOD H, Urine Glucose NEG, Urine Test NEGATIVE Diagnostic Imaging: Viewed by Me: Radiology Read. Discussed w/RAD: Radiology Read. CXR Impression: PATIENT: JESSICA REYES PRESENT AGE: 31 PATIENT ACCOUNT NO: [id number] : 84 LOCATION: [facility] ORDERING PHYSICIAN: MARIANO ANDERSON MD SERVICE DATE: 06/28/16 EXAM TYPE: RAD - XRY-CHEST XRAY, PA AND LATERAL EXAMINATION: XR CHEST CLINICAL INFORMATION: Pneumonia. Cough. COMPARISON: Chest x-ray dated 09/12/2011 TECHNIQUE: 2 views of the chest were obtained. FINDINGS: Cardia mediastinal silhouette is within normal limits. Lungs are clear. Visualized bony thorax is intact. IMPRESSION: No acute pulmonary disease. DICTATED BY: ENE GARCIA MD DATE/TIME DICTATED:1803 CONTROL INSPECTOR:OUMOU DATE/TIME TRANSCRIBED:06/28/161803 CONFIDENTIAL, DO NOT COPY WITHOUT APPROPRIATE AUTHORIZATION. <Electronically signed in Other Vendor System> SIGNED BY: ENE GARCIA MD 06/28/161807 Initial ED EKG: none Departure Departure Disposition: HOME OR SELF CARE Condition: Stable Clinical Impression Primary Impression: Back pain Secondary Impressions: Bronchitis Referrals: MEDINA BANKS MD (PCP/Family) Additional Instructions: DRINK PLENTY OF FLUIDS RETURN FOR ANY CONCERNS Departure Forms: Customer Survey General Discharge Information Prescriptions: Current Visit Scripts Ibuprofen 1 TAB PO TID PRN PAIN #20 TAB with food Benzonatate (Tessalon Perle) 1 CAP PO TID PRN COUGH #30 CAP Amoxicillin 1 TAB PO TID #30 TAB Critical Care Note Critical Care Note Critical Care Time: non-applicable
--- NOTE | 2016-06-28 18:08 | RADIOLOGY REPORT ---
EXAMINATION: XR CHEST CLINICAL INFORMATION: Pneumonia. Cough. COMPARISON: Chest x-ray dated 09/12/2011 TECHNIQUE: 2 views of the chest were obtained. FINDINGS: Cardia mediastinal silhouette is within normal limits. Lungs are clear. Visualized bony thorax is intact. IMPRESSION: No acute pulmonary disease.
[2016-06-28] MEDS ORDERED: IBUPROFEN600 M1 PO (18:11)
[2016-06-28] MEDS ORDERED: TESSALON PERLE100 M1 PO (18:11)
[2016-06-28] MEDS ORDERED: AMOXICILLIN500 M3 PO (18:12)
[2016-06-28 18:26] VITALS: BP 121/57
== END 2016-06-28 18:26 ==
LOC: ERH 16:08
DX: J40 Bronchitis, not specified as acute or chronic (principal); M54.5 Low back pain; F17.210 Nicotine dependence, cigarettes, uncomplicated
CPT/HCPCS: 81001; 81025

== ENCOUNTER 2016-07-14 21:10 | Emergency (ER) | payer OTHER ==
[~2016-07-14] VITALS: Ht 165.1 cm; Wt 99.8 kg
[~2016-07-14 21:10] MED LIST changes: +AMOXICILLIN500 M3 PO; +IBUPROFEN600 M1 PO; +TESSALON PERLE100 M1 PO
--- NOTE | 2016-07-14 21:36 | ED GI/GU/ABDOMINAL COMPLAINT ---
See Addendum History of Present Illness General Chief Complaint: Abdominal Pain/Flank Pain Stated Complaint: ABD PAIN Source: patient, old records Exam Limitations: no limitations Vital Signs & Intake/Output Vital Signs & Intake/Output Vital Signs Date Time Temp Pulse Resp B/P B/P Pulse O2 O2 Flow FiO2 Mean Ox Delivery Rate 07/15 2115 97.8 107 20 136/84 96 Room Air ED Intake and Output 07/15 0000 07/14 1200 Intake Total 0 Output Total Balance 0 Intake, Oral 0 Patient 220 lb Weight Weight Reported by Patient Measurement Method Allergies Coded Allergies: ketorolac (From TORADOL) (Intermediate, rash 07/14/16) tramadol (Intermediate, RASH 07/14/16) oxycodone (VOMITING 07/14/16) Reconcile Medications Albuterol Sulfate (Proair Hfa) 90 MCG HFA.AER.AD 2 PUF INH PRN SOB (Reported) Amoxicillin 500 MG TABLET 1 TAB PO TID BRONCHITIS Benzonatate (Tessalon Perle) 100 MG CAPSULE 1 CAP PO TID PRN COUGH Cetirizine HCl (Zyrtec) 10 MG TABLET 1 TAB PO DAILY ALLERGIES (Reported) Fexofenadine HCl (Santa Allergy) 180 MG TABLET 1 TAB PO DAILY ALLERGIES ( Reported) Ibuprofen 800 MG TABLET 1 TAB PO TID PRN pain Ibuprofen 600 MG TABLET 1 TAB PO TID PRN PAIN with food Levonorgestrel (Mirena) 1 EACH IUD CONTROL (Reported) Metoclopramide HCl (Reglan) (Unknown Strength) TABLET (Unknown Dose) UNKNOWN (Reported) Montelukast Sodium 10 MG TABLET 1 TAB PO DAILY ALLERGIES (Reported) Ondansetron (Zofran Odt) 4 MG TAB.RAPDIS 1 TAB SL TID PRN nausea Triage Note: TRIAGE: PT TO ER C/C R TO MID LOW ABD PAIN, 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 CONSTANT SINCE ONSET. DESCRIBES STABBING IN NATURE. +N/-V/-D. STATES HAS HAD MULTIPLE LOOSE STOOLS, LNBM YESTERDAY. -URINARY S/S. HAS HX OF CHRONIC ABD PAIN BUT THIS PAIN FEELS DIFFERENT. STATES IS DIFFERENT BECAUSE IT RADIATES INTO HER BACK AND HER USUAL PAIN GOES THROUGH WHOLE ABD AND NOT JUST THE RT/MID LOW ABD AREA. Triage Nurses Notes Reviewed? yes ? N Is pt currently ? No HPI: Patient presents with worsening pain or right lower quadrant that radiates to her back as well as his suprapubic area worsened throughout the day. Patient states that it started off as a crampy pain but she ate swedish fries this evening and the pain became sharp and constant. Currently the pain is 8 out of 10. There are no mitigating factors. Patient states that she has chronic abdominal pain but this is totally different than her normal abdominal pain. Positive nausea and anorexia but no vomiting. Patient states that she has had loose stools today. Patient denies any dysuria. There are no fevers or chills. Past History Travel History Traveled to [place] past 21 day No Medical History Any Pertinent Medical History? see below for history Neurological: NONE EENT: allergies Cardiovascular: NONE Respiratory: asthma Gastrointestinal: GASTRITIS CHRONIC ABD PAIN Hepatic: cholecystitis Renal: nephrolithiasis Musculoskeletal: NONE Psychiatric: NONE Endocrine: NONE Blood Disorders: NONE Cancer(s): NONE CARDIOVASCULAR SURGEON/Reproductive: NONE Surgical History Surgical History: cholecystectomy, , tonsillectomy tubes in the ear Psychosocial History What is your primary language Japanese Tobacco Use: Current Daily Use Daily Tobacco Use Amount/Type: =< 4 Cigarettes daily ETOH Use: denies use Illicit Drug Use: denies illicit drug use Family History Hx Contributory? No Review of Systems Review of Systems Constitutional: Reports: no symptoms. EENTM: Reports: no symptoms. Respiratory: Reports: no symptoms. Cardiovascular: Reports: no symptoms. GI: Reports: see HPI, abdominal pain, diarrhea (LOOSE STOOLS), nausea. Genitourinary: Reports: no symptoms. Musculoskeletal: Reports: no symptoms. Skin: Reports: no symptoms. Neurological/Psychological: Reports: no symptoms. Hematologic/Endocrine: Reports: no symptoms. Immunologic/Allergic: Reports: no symptoms. All Other Systems: Reviewed and Negative Physical Exam Physical Exam General Appearance: well developed/nourished, alert, awake, moderate distress Head: atraumatic Eyes: Bilateral: PERRL, EOMI. Ears, Nose, Throat, Mouth: hearing grossly normal, moist mucous membrane Neck: normal inspection, supple, full range of motion Respiratory: normal breath sounds, chest non-tender, no respiratory distress, lungs clear Cardiovascular: regular rate/rhythm, normal peripheral pulses Gastrointestinal: normal bowel sounds, soft, no organomegaly, rebound, tenderness Back: normal inspection, normal range of motion, NO CVA TENDERNESS Neurologic/Psych: no motor/sensory deficits, awake, alert, oriented x 3, normal gait, normal mood/affect Skin: intact, normal color, warm/dry Core Measures ACS in differential dx? No Severe Sepsis Present: No Septic Shock Present: No Progress Differential Diagnosis: appendicitis, bowel obstruction, diverticulitis, ectopic , gastritis, hepatitis, ischemic bowel, inflamm bowel dis, SBO, threatened AB Plan of Care: Orders Procedure Date/time Status URINALYSIS 07/14 2136 Complete LIPASE 07/14 2136 Complete HUMAN BETA HCG SCREEN 07/14 2136 Complete COMPREHENSIVE METABOLIC PANEL 07/14 2136 Complete CBC WITHOUT DIFFERENTIAL 07/14 2136 Complete AMYLASE 07/14 2136 Complete Laboratory Tests 07/14/162156: Urine Color YEL, Urine Clarity CLEAR, Urine pH 6.0, Ur Specific [place] 1.025, Urine Protein TRACE H, Urine Ketones NEG, Urine Nitrite NEG, Urine Bilirubin NEG, Urine Urobilinogen 0.2, Ur Leukocyte Esterase NEG, Ur Microscopic SEDIMENT EXAMINED, Urine RBC 3-5, Urine WBC RARE, Ur Epithelial Cells MOD H, Urine Bacteria MOD H, Urine Hemoglobin MOD H, Urine Glucose NEG 07/14/162148: Anion Gap 13, Estimated GFR > 60, BUN/Creatinine Ratio 15.0, Glucose 109 H, Calcium 9.4, Total Bilirubin 0.5, AST 26, ALT 46, Alkaline Phosphatase 112, Total Protein 8.2, Albumin 4.6, Globulin 3.6, Albumin/Globulin Ratio 1.3, Amylase 56, Lipase 49, Total Beta HCG NEGATIVE, CBC w Diff NO MAN DIFF REQ, RBC 4.71, MCV 90.8, MCH 30.4, RDW 12.9, MPV 11.0 H, Gran % 73.1, Lymphocytes % 18.0 L, Monocytes % 3.0, Eosinophils % 5.6 H, Basophils % 0.3, Absolute Granulocytes 8.9 H, Absolute Lymphocytes 2.2, Absolute Monocytes 0.4, Absolute Eosinophils 0.7, Absolute Basophils 0, PUBS MCHC 33.5 Diagnostic Imaging: Viewed by Me: CT Scan. Discussed w/RAD: CT Scan. Radiology Impression: PATIENT: JESSICA REYES PRESENT AGE: 31 PATIENT ACCOUNT NO: [id number] : 84 LOCATION: [facility] ORDERING PHYSICIAN: MARIANO ANDERSON MD SERVICE DATE: 07/14/16 EXAM TYPE: CAT - CT ABD & PELVIS W IV CONTRAST EXAMINATION: CT ABDOMEN AND PELVIS WITH CONTRAST CLINICAL INFORMATION: Right lower quadrant pain. COMPARISON: Although priors, most recently 02/01/2016 TECHNIQUE: Multidetector volumetric imaging was performed of the abdomen and pelvis before and after the IV administration of 94 mL of Optiray 320 intravenous contrast. Sagittal and coronal reformatted images were obtained on the technologist's workstation. DLP: 618 mGy-cm FINDINGS: LUNG BASES: There is a left lower lobe 0.6 cm nodule on image 1/99. This is unchanged. 0.4 cm nodule along the pleura of the right middle lobe is also unchanged. LIVER, GALLBLADDER, AND BILIARY TREE: The liver is normal in size, shape, and attenuation. No focal hepatic lesion or biliary ductal dilatation is present. Status post cholecystectomy. PANCREAS: Unremarkable. SPLEEN: Unremarkable. ADRENAL GLANDS: Unremarkable. KIDNEYS AND URETERS: The kidneys are normal in size, shape, and attenuation. No hydronephrosis, hydroureter, or calculi seen. No perinephric stranding. BLADDER: Unremarkable. GASTROINTESTINAL TRACT: The stomach and small bowel are unremarkable. No dilated loops of bowel or evidence of obstruction. No colonic wall thickening or inflammatory change. Normal appendix. No free air or free fluid. ABDOMINAL WALL: No significant hernia is appreciated. LYMPH NODES: Normal. VASCULAR: Unremarkable. PELVIC VISCERA: An IUD is in place. No adnexal mass. OSSEOUS STRUCTURES: No acute or suspicious osseous abnormality. IMPRESSION : No inflammatory changes of the abdomen or pelvis. Normal appendix. Stable pulmonary nodules suggestive of benign etiology. DICTATED BY: JANES LUBIN MD DATE/TIME DICTATED:07/14/162349 GANG INVESTIGATOR:OUMOU DATE/TIME TRANSCRIBED:07/14/162349 CONFIDENTIAL, DO NOT COPY WITHOUT APPROPRIATE AUTHORIZATION. <Electronically signed in Other Vendor System> SIGNED BY: JANES LUBIN MD 07/14/162357 Initial ED EKG: none Departure Departure Disposition: HOME OR SELF CARE Condition: Stable Clinical Impression Primary Impression: Lower abdominal pain, unspecified Referrals: MEDINA BANKS MD (PCP/Family) Additional Instructions: RETURN FOR ANY CONCERNS Departure Forms: Customer Survey General Discharge Information Prescriptions: Current Visit Scripts Oxycodone HCl/Acetaminophen (Percocet 5-325 MG Tablet) 1-2 TAB PO Q6P PRN PAIN #10 TAB
[2016-07-14 21:56] LABS: ABSOLUTE BASOPHIL COUNT 0 /CUMM (0.0-0.2); ABSOLUTE EOSINOPHIL COUNT 0.7 /CUMM (0.0-0.7); ABSOLUTE GRANULOCYTE CT 8.9 /CUMM (1.4-6.5); ABSOLUTE LYMPH COUNT 2.2 /CUMM (1.2-3.4); ABSOLUTE MONOCYTE COUNT 0.4 /CUMM (0.10-0.60); BASOPHIL % 0.3 % (0.0-2.0); EOSINOPHIL % 5.6 % (0-5); GRANULOCYTE % 73.1 % (42.2-75.2); HEMATOCRIT 42.8 % (37-47); MEAN CORPUSCULAR HGB 30.4 PG (27.0-31.0); MEAN CORPUSCULAR HGB CONC 33.5 G/DL (33.0-37.0); MEAN CORPUSCULAR VOLUME 90.8 FL (81.0-99.0); PLATELET COUNT 220 /CUMM (130-400); RBC DISTRIBUTION WIDTH 12.9 % (11.5-14.5); RED BLOOD CELL CT 4.71 /CUMM (4.20-5.40); WHITE BLOOD CELL COUNT 12.2 /CUMM (4.8-10.8)
--- NOTE | 2016-07-14 23:58 | CT SCAN REPORT ---
EXAMINATION: CT ABDOMEN AND PELVIS WITH CONTRAST CLINICAL INFORMATION: Right lower quadrant pain. COMPARISON: Although priors, most recently 02/01/2016 TECHNIQUE: Multidetector volumetric imaging was performed of the abdomen and pelvis before and after the IV administration of 94 mL of Optiray 320 intravenous contrast. Sagittal and coronal reformatted images were obtained on the technologist's workstation. DLP: 618 mGy-cm FINDINGS: LUNG BASES: There is a left lower lobe 0.6 cm nodule on image 1/99. This is unchanged. 0.4 cm nodule along the pleura of the right middle lobe is also unchanged. LIVER, GALLBLADDER, AND BILIARY TREE: The liver is normal in size, shape, and attenuation. No focal hepatic lesion or biliary ductal dilatation is present. Status post cholecystectomy. PANCREAS: Unremarkable. SPLEEN: Unremarkable. ADRENAL GLANDS: Unremarkable. KIDNEYS AND URETERS: The kidneys are normal in size, shape, and attenuation. No hydronephrosis, hydroureter, or calculi seen. No perinephric stranding. BLADDER: Unremarkable. GASTROINTESTINAL TRACT: The stomach and small bowel are unremarkable. No dilated loops of bowel or evidence of obstruction. No colonic wall thickening or inflammatory change. Normal appendix. No free air or free fluid. ABDOMINAL WALL: No significant hernia is appreciated. LYMPH NODES: Normal. VASCULAR: Unremarkable. PELVIC VISCERA: An IUD is in place. No adnexal mass. OSSEOUS STRUCTURES: No acute or suspicious osseous abnormality. IMPRESSION: No inflammatory changes of the abdomen or pelvis. Normal appendix. Stable pulmonary nodules suggestive of benign etiology.
[2016-07-15] MEDS ORDERED: PERCOCET 5-3251 EACH PO (00:07)
[2016-07-15 00:19] VITALS: BP 120/72
[2016-07-15] MEDS ORDERED: VICODIN 5-3001 EACH PO (00:22)
== END 2016-07-15 00:27 ==
LOC: ERH 21:10
PROVIDERS: Emergency Medicine
DX: R10.31 Right lower quadrant pain (principal)
CPT/HCPCS: 74177; 81001; 96374; 96375; J2405

== ENCOUNTER 2016-08-13 20:23 | Emergency (ER) | payer OTHER ==
[~2016-08-13 20:23] MED LIST changes: +PERCOCET 5-3251 EACH PO; +VICODIN 5-3001 EACH PO
[2016-08-13 20:40] VITALS: BP 130/76
--- NOTE | 2016-08-13 21:16 | ED GENERAL ADULT ---
History of Present Illness General Chief Complaint: Abdominal Pain/Flank Pain Stated Complaint: ABD PAIN, DIZZY Source: patient Exam Limitations: no limitations Vital Signs & Intake/Output Vital Signs & Intake/Output Vital Signs Date Time Temp Pulse Resp B/P B/P Pulse O2 O2 Flow FiO2 Mean Ox Delivery Rate 08/14 2039 98.2 97 130/76 99 ED Intake and Output 08/14 0000 08/13 1200 Intake Total Output Total Balance Patient 212 lb Weight Allergies Coded Allergies: ketorolac (From TORADOL) (Intermediate, rash 07/14/16) tramadol (Intermediate, RASH 07/14/16) oxycodone (VOMITING 07/14/16) Reconcile Medications Albuterol Sulfate (Proair Hfa) 90 MCG HFA.AER.AD 2 PUF INH PRN SOB (Reported) Amoxicillin 500 MG TABLET 1 TAB PO TID BRONCHITIS Benzonatate (Tessalon Perle) 100 MG CAPSULE 1 CAP PO TID PRN COUGH Cetirizine HCl (Zyrtec) 10 MG TABLET 1 TAB PO DAILY ALLERGIES (Reported) Fexofenadine HCl (Santa Allergy) 180 MG TABLET 1 TAB PO DAILY ALLERGIES ( Reported) Hydrocodone/Acetaminophen (Vicodin 5-300 MG Tablet) 5 MG-300 MG TABLET 1 TAB PO Q6P PRN PAIN Ibuprofen 800 MG TABLET 1 TAB PO TID PRN pain Ibuprofen 600 MG TABLET 1 TAB PO TID PRN PAIN with food Levonorgestrel (Mirena) 1 EACH IUD CONTROL (Reported) Metoclopramide HCl (Reglan) (Unknown Strength) TABLET (Unknown Dose) UNKNOWN (Reported) Montelukast Sodium 10 MG TABLET 1 TAB PO DAILY ALLERGIES (Reported) Ondansetron (Zofran Odt) 4 MG TAB.RAPDIS 1 TAB SL TID PRN nausea Ondansetron (Zofran Odt) 4 MG TAB.RAPDIS 1 TAB SL TID PRN nausea Oxycodone HCl/Acetaminophen (Percocet 5-325 MG Tablet) 5 MG-325 MG TABLET 1-2 TAB PO Q6P PRN PAIN Triage Note: PER PT DIZZY ALL DAY AND L KIDNEY PAIN ALL DAY PER PT LMP 06/23/16 BUT ON MIRANA Triage Nurses Notes Reviewed? yes : No Patient currently breastfeeds: No HPI: 31-year-old female with a history of asthma, cholecystitis, nephrolithiasis, chronic abdominal pain presenting with constant left mid back pain that radiates around the left flank into the left upper quadrant and left lower quadrant 3 days. Part sharp pain with no worsening or alleviating factors. Endorses nausea, vomiting, diarrhea. Denies fevers, dysuria, vaginal discharge, vaginal bleeding. Does not tried anything for pain relief. Reports decreased by mouth intake for the past 3 days secondary to nausea and vomiting, began to have intermittent lightheadedness today. (JEREMIAS CA PA-C) Past History Travel History Traveled to [place] past 21 day No Medical History Any Pertinent Medical History? 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 No (JEREMIAS CA PA-C) Review of Systems Review of Systems Constitutional: Denies: chills, diaphoresis, fever, malaise, weakness. Respiratory: Reports: no symptoms. Cardiovascular: Reports: no symptoms. GI: Reports: abdominal pain, diarrhea, nausea, vomiting. Genitourinary: Denies: discharge, dysuria, frequency, hematuria, urgency. Neurological/Psychological: Reports: other (light headedness). Denies: headache, numbness, paresthesia, tingling, tremors, weakness. (JEREMIAS CA PA-C) Physical Exam Physical Exam General Appearance: well developed/nourished, no apparent distress Head: atraumatic Respiratory: normal breath sounds, lungs clear Cardiovascular: regular rate/rhythm Gastrointestinal: normal bowel sounds, soft, tenderness, on exam abdomen is soft , nondistended, diffusely tender to palpation without focality, no rebound or guarding, no CVA tenderness Neurologic/Psych: no motor/sensory deficits, awake, alert, oriented x 3, normal gait, social worker school II-XII nml as tested Core Measures ACS in differential dx? No CVA/TIA Diagnosis: No Severe Sepsis Present: No Septic Shock Present: No (JEREMIAS CA PA-C) Progress Differential Diagnoses I considered the following diagnoses in my evaluation of the patient: [ Gastroenteritis versus pancreatitis versus biliary versus appendicitis versus colitis versus UTI versus pyelonephritis versus renal stone versus STD versus PID] Plan of Care: Orders Procedure Date/time Status LIPASE 08/13 2050 Complete COMPREHENSIVE METABOLIC PANEL 08/13 2050 Complete CBC WITHOUT DIFFERENTIAL 08/13 2050 Complete AMYLASE 08/13 2050 Complete URINE 08/13 2040 Complete URINALYSIS 08/13 2040 Complete Current Medications Sig/Balbina Start time Last Medication Dose Stop Time Status Admin Ibuprofen 600 MG ONCE ONE 08/13 2129 CAN (Motrin) 08/13 2130 Laboratory Tests 08/13/162108: Anion Gap 11, Estimated GFR > 60, BUN/Creatinine Ratio 17.5, Glucose 102 H, Calcium 9.4, Total Bilirubin 0.3, AST 21, ALT 40, Alkaline Phosphatase 96, Total Protein 7.4, Albumin 4.2, Globulin 3.2, Albumin/Globulin Ratio 1.3, Amylase 48, Lipase 34, CBC w Diff NO MAN DIFF REQ, RBC 4.25, MCV 91.8, MCH 31.2 H, RDW 12.9 , MPV 10.5 H, Gran % 65.4, Lymphocytes % 23.3, Monocytes % 4.9, Eosinophils % 5.6 H, Basophils % 0.8, Absolute Granulocytes 7.2 H, Absolute Lymphocytes 2.5, Absolute Monocytes 0.5, Absolute Eosinophils 0.6, Absolute Basophils 0.1, PUBS MCHC 34.0 08/13/162057: Urinalysis LIGHT H, Urine Color YEL, Urine Clarity CLEAR, Urine pH 6.0, Ur Specific [place] 1.025, Urine Protein TRACE H, Urine Ketones NEG, Urine Nitrite NEG, Urine Bilirubin NEG, Urine Urobilinogen 0.2, Ur Leukocyte Esterase NEG, Ur Microscopic SEDIMENT EXAMINED, Urine RBC 5-10 H, Urine WBC RARE, Ur Epithelial Cells FEW, Urine Hemoglobin MOD H, Urine Glucose NEG, Urine Test NEGATIVE Urine positive for hematuria therefore proceeded with CT abdomen and pelvis for renal stones. The abdomen and pelvis was unremarkable. All other labs within normal limits. Patient with good pain relief after GI cocktail, Bentyl, Zofran. Likely with gastroenteritis. (LANNY MARAVILLA,JEREMIAS) Initial ED EKG: none (JEREMIAS CA PA-C) Departure Departure Disposition: HOME OR SELF CARE Condition: Stable Clinical Impression Primary Impression: Abdominal pain Secondary Impressions: Nausea vomiting and diarrhea Referrals: MEDINA BANKS MD (PCP/Family) Additional Instructions: Use Zofran every 8 hours as needed for nausea. Maintain adequate fluid intake. Follow-up with primary care provider the next 24 hours. Return to the ED for any new or worsening symptoms. Departure Forms: Customer Survey General Discharge Information Prescriptions: Current Visit Scripts Ondansetron (Zofran Odt) 1 TAB SL TID PRN nausea #10 TAB (JEREMIAS CA PA-C) PA/BUILDING CONSTRUCTION TEACHER Co-Sign Statement Statement: ED Attending supervision documentation- [] I saw and evaluated the patient. I have also reviewed all the pertinent lab results and diagnostic results. I agree with the findings and the plan of care as documented in the PA's/BUILDING CONSTRUCTION TEACHER's documentation. [X] I have reviewed the ED Record and agree with the PA's/BUILDING CONSTRUCTION TEACHER's documentation. [] Additions or exceptions (if any) to the PAs/BUILDING CONSTRUCTION TEACHER's note and plan are summarized below: [] (JUSTIN MESSINA,MARIANO Raza) Critical Care Note Critical Care Note Critical Care Time: non-applicable (JEREMIAS CA PA-C)
[2016-08-13 21:23] LABS: ABSOLUTE BASOPHIL COUNT 0.1 /CUMM (0.0-0.2); ABSOLUTE EOSINOPHIL COUNT 0.6 /CUMM (0.0-0.7); ABSOLUTE GRANULOCYTE CT 7.2 /CUMM (1.4-6.5); ABSOLUTE LYMPH COUNT 2.5 /CUMM (1.2-3.4); ABSOLUTE MONOCYTE COUNT 0.5 /CUMM (0.10-0.60); BASOPHIL % 0.8 % (0.0-2.0); EOSINOPHIL % 5.6 % (0-5); GRANULOCYTE % 65.4 % (42.2-75.2); MEAN CORPUSCULAR HGB 31.2 PG (27.0-31.0); MEAN CORPUSCULAR VOLUME 91.8 FL (81.0-99.0); MEAN PLATELET VOLUME 10.5 FL (7.4-10.4); PLATELET COUNT 208 /CUMM (130-400); RBC DISTRIBUTION WIDTH 12.9 % (11.5-14.5); RED BLOOD CELL CT 4.25 /CUMM (4.20-5.40); WHITE BLOOD CELL COUNT 10.9 /CUMM (4.8-10.8)
--- NOTE | 2016-08-13 23:14 | CT SCAN REPORT ---
EXAMINATION: CT ABDOMEN AND PELVIS WITHOUT CONTRAST CLINICAL INFORMATION: Left flank pain COMPARISON: CT scan abdomen pelvis 07/14/2016 TECHNIQUE: Multidetector volumetric imaging was performed from the superior aspect of the liver through the pubic symphysis. Sagittal and coronal reformatted images were obtained on the technologist's workstation. DLP: 659.03 mGy-cm FINDINGS: LUNG BASES: Stable 6 mm nodule left lower lobe adjacent major fissure image 23 (3). Stable 5 mm subpleural nodule left lower lobe image 54 (3). Linear scar subpleural lung right middle lobe image 31 (3) stable. LIVER, GALLBLADDER, AND BILIARY TREE: The liver is normal in size, shape, and attenuation. No focal hepatic lesion or biliary ductal dilatation is present. Status post cholecystectomy. PANCREAS: Unremarkable. SPLEEN: Unremarkable. ADRENAL GLANDS: Unremarkable. KIDNEYS AND URETERS: The kidneys are normal in size, shape, and attenuation. No hydronephrosis, hydroureter, or calculi seen. No perinephric stranding. BLADDER: Unremarkable. GASTROINTESTINAL TRACT: The small and large bowel are unremarkable. The appendix is unremarkable. ABDOMINAL WALL: No significant hernia is appreciated. LYMPH NODES: Normal. VASCULAR: Small vascular wall calcifications of the distal aorta. No aneurysm of aorta. PELVIC VISCERA: Uterus is anteverted. IUD in the endometrial cavity. No adnexal abnormality. OSSEOUS STRUCTURES: Unremarkable. IMPRESSION: No acute abnormality CT scan abdomen pelvis.
[2016-08-13] MEDS ORDERED: ZOFRAN ODT4 M1 SL (23:41)
== END 2016-08-13 23:53 ==
LOC: ERH 20:23
PROVIDERS: Emergency Medicine
DX: R10.12 Left upper quadrant pain (principal); R10.32 Left lower quadrant pain; R42 Dizziness and giddiness
CPT/HCPCS: 74176; 81001; 81025; 96374; J2405

== ENCOUNTER 2016-09-04 16:28 | Emergency (ER) | payer OTHER ==
[~2016-09-04] VITALS: Ht 165.1 cm; Wt 95.3 kg
--- NOTE | 2016-09-04 18:03 | ED GI/GU/ABDOMINAL COMPLAINT ---
History of Present Illness General Chief Complaint: Abdominal Pain/Flank Pain Stated Complaint: PT IS HAVING ABDOMINAL PAIN Source: patient, old records Exam Limitations: no limitations Vital Signs & Intake/Output Vital Signs & Intake/Output Vital Signs Date Time Temp Pulse Resp B/P B/P Pulse O2 O2 Flow FiO2 Mean Ox Delivery Rate 09/04 2109 98.0 70 20 1116/68 98 Room Air 09/04 1934 97.3 68 20 108/68 09/04 1651 97.8 97 16 122/79 98 Room Air ED Intake and Output 09/05 0000 09/04 1200 Intake Total 1000 Output Total Balance 1000 Intake, IV 1000 Patient 210 lb Weight Weight Reported by Patient Measurement Method Allergies Coded Allergies: ketorolac (From TORADOL) (Intermediate, rash 07/14/16) tramadol (Intermediate, RASH 07/14/16) oxycodone (VOMITING 07/14/16) Reconcile Medications Albuterol Sulfate (Proair Hfa) 90 MCG HFA.AER.AD 2 PUF INH PRN SOB (Reported) Cetirizine HCl (Zyrtec) 10 MG TABLET 1 TAB PO DAILY ALLERGIES (Reported) Dicyclomine HCl 20 MG TABLET 1 TAB PO BID GI (Reported) Docusate Sodium (Colace) 100 MG CAPSULE 1 CAP PO BID PRN GI (Reported) Fexofenadine HCl (Santa Allergy) 180 MG TABLET 1 TAB PO DAILY ALLERGIES ( Reported) Hydrocodone/Acetaminophen (Vicodin 5-300 MG Tablet) 5 MG-300 MG TABLET 1 TAB PO TID pain Levonorgestrel (Mirena) 1 EACH IUD CONTROL (Reported) Montelukast Sodium 10 MG TABLET 1 TAB PO DAILY ALLERGIES (Reported) Triage Note: PT HAVE LOWER ABD PAIN FOR THE PAST 2 DAY. PT DID NOT CALL PCP. PT STATE SHE IS HAVING STABBING TWISTING PAIN. Triage Nurses Notes Reviewed? yes LMP (ages 10-50): date (06/23/16 IUD) ? N Is pt currently ? No Onset: Abrupt Duration: day(s): (2) Timing: single episode today Quality/Severity: cramping, moderate, stabbing Severity Numbers: 9 Location: right lower quadrant Radiation: groin Activities at Onset: none Prior Abdominal Problems: similar symptoms Past Sexual History: Unobtainable at this time Sexually Active: Yes Last Time You Were Sexual: less than 2 months ago No Modifying Factors: none Modifying Factors: Worsens With: eating, movement, palpation. Associated Symptoms: abdominal pain, dysuria, nausea/vomiting HPI: 31-year-old female with history of asthma presents complaining of nausea vomiting and lower abdominal pain for the past 2 days. Patient reports pain started abruptly 2 days ago and is located in the right lower quadrant of her abdomen. She describes the pain as twisting and stabbing and is rated as a 9 out of 10. Pain radiates into her right groin and right flank. Pain increases with eating but she is tolerating fluids. Patient is a seen in the emergency department on multiple previous occasions for similar complaints. She reports not taking any medication for the pain and there are no alleviating factors. (JANINA SHAH PA-C) Past History Travel History Traveled to [place] past 21 day No Medical History Any Pertinent Medical History? 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 Yes (JANINA SHAH PA-C) Review of Systems Review of Systems Constitutional: Reports: no symptoms. EENTM: Reports: no symptoms. Respiratory: Reports: no symptoms. Cardiovascular: Reports: no symptoms. GI: Reports: see HPI, abdominal pain. Genitourinary: Reports: no symptoms. Musculoskeletal: Reports: no symptoms. Skin: Reports: no symptoms. Neurological/Psychological: Reports: no symptoms. Hematologic/Endocrine: Reports: no symptoms. Immunologic/Allergic: Reports: no symptoms. All Other Systems: Reviewed and Negative (JANINA SHAH PA-C) Physical Exam Physical Exam General Appearance: well developed/nourished, no apparent distress, alert, awake Head: atraumatic, normal appearance Eyes: Bilateral: normal appearance, PERRL, EOMI, normal inspection. Ears, Nose, Throat, Mouth: hearing grossly normal, moist mucous membrane, Tympanic normal Neck: normal inspection, supple, full range of motion, normal alignment Respiratory: normal breath sounds, chest non-tender, no respiratory distress, lungs clear Cardiovascular: regular rate/rhythm, normal peripheral pulses Peripheral Pulses: 2+ dorsalis pedis (R), 2+ dorsalis pedis (L) Gastrointestinal: normal bowel sounds, soft, tenderness (RLQ) Back: normal inspection, normal range of motion, no vertebral tenderness Extremities: normal range of motion Neurologic/Psych: no motor/sensory deficits, awake, alert, oriented x 3, normal gait, normal mood/affect Skin: intact, normal color, warm/dry Core Measures ACS in differential dx? No Severe Sepsis Present: No Septic Shock Present: No (PABLO MARAVILLA,JANINA) Progress Differential Diagnosis: appendicitis, biliary colic, bowel obstruction, cholecystitis, diverticulitis, ectopic , endometritis, gastritis, hepatitis, kidney stone, PUD/GERD, perforated viscous, SBO, UTI/pyelo Plan of Care: Orders Procedure Date/time Status URINE 09/05 1811 Complete URINALYSIS 09/05 1811 Complete LIPASE 09/05 1811 Complete C-REACTIVE PROTEIN 09/05 1811 Complete COMPREHENSIVE METABOLIC PANEL 09/05 1811 Complete CBC WITHOUT DIFFERENTIAL 09/05 1811 Complete Laboratory Tests 09/04/161819: Urine Color YEL, Urine Clarity HAZY H, Urine pH 6.0, Ur Specific [place] >= 1.030, Urine Protein TRACE H, Urine Ketones NEG, Urine Nitrite NEG, Urine Bilirubin NEG, Urine Urobilinogen 0.2, Ur Leukocyte Esterase NEG, Ur Microscopic SEDIMENT EXAMINED, Urine RBC 3-5, Urine WBC RARE, Ur Epithelial Cells FEW, Urine Bacteria MOD H, Urine Hemoglobin MOD H, Urine Glucose NEG, Urine Test NEGATIVE 09/04/161814: Anion Gap 13, Estimated GFR > 60, BUN/Creatinine Ratio 12.5, Glucose 86, Calcium 9.6, Total Bilirubin 0.5, AST 24, ALT 49, Alkaline Phosphatase 98, C-Reactive Prot, Quant 1.8 H, Total Protein 7.7, Albumin 4.3, Globulin 3.4, Albumin/ Globulin Ratio 1.3, Lipase 28, CBC w Diff NO MAN DIFF REQ, RBC 4.42, MCV 91.2, MCH 31.0, RDW 13.1, MPV 10.5 H, Gran % 69.0, Lymphocytes % 21.1, Monocytes % 4.0, Eosinophils % 5.6 H, Basophils % 0.3, Absolute Granulocytes 7.3 H, Absolute Lymphocytes 2.2, Absolute Monocytes 0.4, Absolute Eosinophils 0.6, Absolute Basophils 0, PUBS MCHC 34.0 6:17 PM: Patient seen and evaluated. She is nontoxic appearing and in no acute distress. BasiC blood work urine sent. Patient medicated with IV Tylenol Zofran and 1 L normal saline will follow-up on lab results and reevaluate patient. 7:04 PM: Blood work is back and is within normal limits other than very mildly elevated CRP. Urine is back and is not showing any signs of infection. Patient was reevaluated and is still having pain but reports that it has improved. Patient now states that the pain she is having is currently similar to previous ovarian cyst on the right side. A pelvic ultrasound cait lbe ordered to further evaluate this. Patient has had a CT scan previously in May and June of this year. She is nontoxic-appearing labs are good. Suspicion for appendicitis is very low. 9 PM: Ultrasound shows a rt sided ovarian cyst. patient is feeling much better and asking to go home. Pt is nontoxic appearing and says her pain is improved significantly. She'll be discharged home on Vicodin to use as needed and make a follow up appointment with her primary care doctor this week. All results reviewed with patient and she is in agreement with the plan. He is discussed with Dr. Xiong who is in agreement with the plan. (PABLO MARAVILLA,JANINA) Diagnostic Imaging: Viewed by Me: Ultrasound. Initial ED EKG: none Comments: SERVICE DATE: 09/04/16 EXAM TYPE: US - US-PELVIC MASS DIAG EXAMINATION: US PELVIC MASS DIAGNOSIS CLINICAL INFORMATION: Right lower quadrant pain. COMPARISON: CT abdomen and pelvis without contrast 08/13/2016. TECHNIQUE: Real-time sonographic imaging of the uterus and bilateral adnexa via transabdominal approach. FINDINGS: Limited exam secondary to patient body habitus and incomplete bladder filling. The uterus is anteverted and measures 6.6 x 3.4 x 3.9 cm in sagittal, AP and transverse dimensions respectively. The endometrial stripe and cervical length are not well visualized on this exam. The right ovary measures 4.7 x 3.7 x 4.2 cm, corresponding to a volume of 38.2 mL. There is a cyst within the right ovary measuring 3.7 x 2.8 x 3.6 cm. Flow is demonstrated within the right ovary. The left ovary is not well seen. No significant free pelvic fluid. IMPRESSION: Limited exam secondary to patient body habitus and incomplete filling of the urinary bladder. A 3.7 x 2.8 x 3.6 cm cyst is identified within the right ovary. Arterial and venous flow are demonstrated within the right ovary. The left ovary is not visualized on this examination. The endometrial stripe is also not well seen on this exam. DICTATED BY: RAMA WISE MD DATE/TIME DICTATED:09/04/162040 POCKET CREASER:OUMOU DATE/TIME TRANSCRIBED:09/04/162040 (JANINA SHAH PA-C) Departure Departure Disposition: HOME OR SELF CARE Condition: Stable Clinical Impression Primary Impression: Abdominal pain Qualifiers: Abdominal location: right lower quadrant Qualified Code: R10.31 - Right lower quadrant pain Referrals: MEDINA BANKS MD (PCP/Family) Additional Instructions: Rest and drink plenty of fluids. Use Tylenol thousand milligrams every 6 hours as needed for pain. vicodin can be used every 4-6 hours as needed for severe pain only. Follow up appointment with her primary care doctor this week or return to emergency department sooner with any concerns. Please go over all results of today's visit with your primary care doctor. Contact your primary care doctor to let them know you were here in the emergency room. There may be nonspecific findings which may not be related to your visit today here in the emergency room but may require further evaluation and chronic monitoring by your primary care doctor. If you had a laceration today the chance of foreign body always remains. You should follow-up with your primary care doctor for recheck in 3-5 days for a wound check. If you had an x-ray done there is a chance that a fracture could have been missed on initial read and you should follow-up with your primary care doctor for repeat x-rays if symptoms persist. If your blood pressure was elevated here in the emergency room please have rechecked by her primary care doctor within the next 48 hours by your primary care doctor. If you were prescribed a narcotic here in the emergency room or any type of controlled substances you're not allowed to drive while taking this medication or operate any type of heavy machinery. Narcotics can make you feel lightheaded dizziness nausea and can cause constipation. You may need to picker machine operator a stool softener. Thank you for choosing [facility] emergency room. Please return to the emergency room immediately if you have any other concerns worsening of symptoms. Departure Forms: Customer Survey General Discharge Information Prescriptions: Current Visit Scripts Hydrocodone/Acetaminophen (Vicodin 5-300 MG Tablet) 1 TAB PO TID #6 TAB (JANINA SHAH PA-C) PA/BRAND MARKETING SPECIALIST Co-Sign Statement Statement: ED Attending supervision documentation- [] I saw and evaluated the patient. I have also reviewed all the pertinent lab results and diagnostic results. I agree with the findings and the plan of care as documented in the PA's/BRAND MARKETING SPECIALIST's documentation. [X] I have reviewed the ED Record and agree with the PA's/BRAND MARKETING SPECIALIST's documentation. [] Additions or exceptions (if any) to the PAs/BRAND MARKETING SPECIALIST's note and plan are summarized below: [] (JUSTIN MESSINA,MARIANO Raza)
[2016-09-04 18:46] LABS: ABSOLUTE BASOPHIL COUNT 0 /CUMM (0.0-0.2); ABSOLUTE EOSINOPHIL COUNT 0.6 /CUMM (0.0-0.7); ABSOLUTE GRANULOCYTE CT 7.3 /CUMM (1.4-6.5); ABSOLUTE LYMPH COUNT 2.2 /CUMM (1.2-3.4); ABSOLUTE MONOCYTE COUNT 0.4 /CUMM (0.10-0.60); BASOPHIL % 0.3 % (0.0-2.0); EOSINOPHIL % 5.6 % (0-5); HEMATOCRIT 40.3 % (37-47); MEAN CORPUSCULAR VOLUME 91.2 FL (81.0-99.0); MEAN PLATELET VOLUME 10.5 FL (7.4-10.4); PLATELET COUNT 215 /CUMM (130-400); RBC DISTRIBUTION WIDTH 13.1 % (11.5-14.5); RED BLOOD CELL CT 4.42 /CUMM (4.20-5.40); WHITE BLOOD CELL COUNT 10.6 /CUMM (4.8-10.8)
[2016-09-04] MEDS ORDERED: DICYCLOMINE HCL20 M1 PO (19:16)
[2016-09-04] MEDS ORDERED: COLACE100 M1 PO (19:17)
--- NOTE | 2016-09-04 20:58 | ULTRASOUND REPORT ---
EXAMINATION: US PELVIC MASS DIAGNOSIS CLINICAL INFORMATION: Right lower quadrant pain. COMPARISON: CT abdomen and pelvis without contrast 08/13/2016. TECHNIQUE: Real-time sonographic imaging of the uterus and bilateral adnexa via transabdominal approach. FINDINGS: Limited exam secondary to patient body habitus and incomplete bladder filling. The uterus is anteverted and measures 6.6 x 3.4 x 3.9 cm in sagittal, AP and transverse dimensions respectively. The endometrial stripe and cervical length are not well visualized on this exam. The right ovary measures 4.7 x 3.7 x 4.2 cm, corresponding to a volume of 38.2 mL. There is a cyst within the right ovary measuring 3.7 x 2.8 x 3.6 cm. Flow is demonstrated within the right ovary. The left ovary is not well seen. No significant free pelvic fluid. IMPRESSION: Limited exam secondary to patient body habitus and incomplete filling of the urinary bladder. A 3.7 x 2.8 x 3.6 cm cyst is identified within the right ovary. Arterial and venous flow are demonstrated within the right ovary. The left ovary is not visualized on this examination. The endometrial stripe is also not well seen on this exam.
[2016-09-04] MEDS ORDERED: VICODIN 5-3001 EACH PO (21:02)
[2016-09-04 21:09] VITALS: BP 1116/68
== END 2016-09-04 21:11 ==
LOC: ERH 16:28
PROVIDERS: Physician Assistant Medical
DX: R10.31 Right lower quadrant pain (principal)
CPT/HCPCS: 81001; 81025; 96361; 96374; 96375; J0131; J2405

== ENCOUNTER 2016-09-27 14:41 | Emergency (ER) | payer OTHER ==
[~2016-09-27] VITALS: Ht 165.1 cm; Wt 99.8 kg
[~2016-09-27 14:41] MED LIST changes: +COLACE100 M1 PO; +DICYCLOMINE HCL20 M1 PO
--- NOTE | 2016-09-27 17:01 | ED GI/GU/ABDOMINAL COMPLAINT ---
History of Present Illness General Chief Complaint: Abdominal Pain/Flank Pain Stated Complaint: L SIDED ABD PAIN Source: patient Exam Limitations: no limitations Vital Signs & Intake/Output Vital Signs & Intake/Output Vital Signs Date Time Temp Pulse Resp B/P B/P Pulse O2 O2 Flow FiO2 Mean Ox Delivery Rate 09/27 1756 132/68 09/27 1756 98.6 89 18 138/68 98 Room Air 09/27 1451 97.8 88 20 131/83 98 Room Air ED Intake and Output 09/28 0000 09/27 1200 Intake Total 0 Output Total Balance 0 Intake, Oral 0 Patient 220 lb Weight Allergies Coded Allergies: ketorolac (From TORADOL) (Intermediate, rash 07/14/16) tramadol (Intermediate, RASH 07/14/16) oxycodone (VOMITING 07/14/16) Reconcile Medications Albuterol Sulfate (Proair Hfa) 90 MCG HFA.AER.AD 2 PUF INH PRN SOB (Reported) Cetirizine HCl (Zyrtec) 10 MG TABLET 1 TAB PO DAILY ALLERGIES (Reported) Dicyclomine HCl 20 MG TABLET 1 TAB PO BID GI (Reported) Docusate Sodium (Colace) 100 MG CAPSULE 1 CAP PO BID PRN GI (Reported) Fexofenadine HCl (Santa Allergy) 180 MG TABLET 1 TAB PO DAILY ALLERGIES ( Reported) Hydrocodone/Acetaminophen (Vicodin 5-300 MG Tablet) 5 MG-300 MG TABLET 1 TAB PO TID pain Ibuprofen 800 MG TABLET 1 TAB PO TID pain Levonorgestrel (Mirena) 1 EACH IUD CONTROL (Reported) Montelukast Sodium 10 MG TABLET 1 TAB PO DAILY ALLERGIES (Reported) Triage Note: PT PRESENTS TO ER C/O OF CHRONIC ABDOMINAL PAIN THAT STARTED TO GET WORSE YESTERDAY. PT STATES SHE CALLED HER DOCTOR AND IS WAITING A CALL BACK TO SEE A SPECIALIST FOR HER CHONIC ABDOMINAL X 2 YEARS. PT ALSO C/O OF CHRONIC NAUSEA AND LOOSE STOOLS. Triage Nurses Notes Reviewed? yes ? N Is pt currently ? No Onset: Abrupt Duration: day(s): Timing: recent history Quality/Severity: mild, sharpness Location: left lower quadrant Radiation: back Prior Abdominal Problems: none No Modifying Factors: none HPI: 31-year-old female comes into emergency room for further evaluation of left lower abdominal pain has been going on for the past few days.. Radiates to her lower back. Patient reports one episode of vomiting. Denies any urinary symptoms. Denies any fever. Denies any changes in bowel movement. Previous cholecystectomy. Nothing seems to make the symptoms better or worse. Denies any associated symptoms Past History Travel History Traveled to [place] past 21 day No Medical History Any Pertinent Medical History? 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 No Review of Systems Review of Systems Constitutional: Reports: no symptoms. EENTM: Reports: no symptoms. Respiratory: Reports: no symptoms. Cardiovascular: Reports: no symptoms. GI: Reports: see HPI. Genitourinary: Reports: see HPI. Musculoskeletal: Reports: no symptoms. Skin: Reports: no symptoms. Neurological/Psychological: Reports: no symptoms. Hematologic/Endocrine: Reports: no symptoms. Immunologic/Allergic: Reports: no symptoms. All Other Systems: Reviewed and Negative Physical Exam Physical Exam General Appearance: well developed/nourished, no apparent distress, alert Head: atraumatic, normal appearance Eyes: Bilateral: normal appearance, EOMI. Ears, Nose, Throat, Mouth: hearing grossly normal, moist mucous membrane Neck: normal inspection Respiratory: normal breath sounds, no respiratory distress Cardiovascular: regular rate/rhythm Gastrointestinal: soft, tenderness Back: normal inspection Extremities: normal range of motion Neurologic/Psych: awake, alert, oriented x 3, normal gait, normal mood/affect Skin: intact, normal color Core Measures ACS in differential dx? No Severe Sepsis Present: No Septic Shock Present: No Progress Differential Diagnosis: appendicitis, biliary colic, bowel obstruction, cholecystitis, diverticulitis, ectopic , endometritis, gastritis, hepatitis, hemorrhoids, ischemic bowel, inflamm bowel dis, kidney stone, ovarian cyst, ovarian torsion, pancreatitis, PID/cervicitis, peptic ulcer, PUD/GERD, perforated viscous, UTI/pyelo Plan of Care: Orders Procedure Date/time Status URINE 09/27 1659 Complete URINALYSIS 09/27 1658 Complete LIPASE 09/27 1658 Complete COMPREHENSIVE METABOLIC PANEL 09/27 1658 Complete CBC WITHOUT DIFFERENTIAL 09/27 1658 Complete Laboratory Tests 09/27/16 1735: Anion Gap 10, Estimated GFR > 60, BUN/Creatinine Ratio 12.5, Glucose 81, Calcium 9.6, Total Bilirubin 0.3, AST 23, ALT 37, Alkaline Phosphatase 87, Total Protein 7.3, Albumin 4.3, Globulin 3.0, Albumin/Globulin Ratio 1.4, Lipase 34, CBC w Diff NO MAN DIFF REQ, RBC 4.48, MCV 92.2, MCH 30.7, RDW 12.9, MPV 11.4 H, Gran % 68.4, Lymphocytes % 21.5, Monocytes % 4.7, Eosinophils % 5.0, Basophils % 0.4, Absolute Granulocytes 7.3 H, Absolute Lymphocytes 2.3, Absolute Monocytes 0.5, Absolute Eosinophils 0.5, Absolute Basophils 0, PUBS MCHC 33.3, Urinalysis LIGHT H, Urine Color YEL, Urine Clarity HAZY H, Urine pH 6.0, Ur Specific [place] >= 1.030, Urine Protein NEG, Urine Ketones NEG, Urine Nitrite NEG, Urine Bilirubin NEG, Urine Urobilinogen 0.2, Ur Leukocyte Esterase NEG, Ur Microscopic SEDIMENT EXAMINED, Urine RBC 5-10 H, Urine WBC RARE, Ur Epithelial Cells MOD H, Urine Bacteria MOD H, Urine Mucus RARE, Urine Hemoglobin MOD H, Urine Glucose NEG, Urine Test NEGATIVE Initial ED EKG: none Departure Departure Disposition: HOME OR SELF CARE Condition: Stable Clinical Impression Primary Impression: Abdominal pain Secondary Impressions: Hematuria Referrals: ABA MESSINA,ANNA BANKS MD,MEDINA (PCP/Family) Additional Instructions: Follow-up with your primary care doctor. Return if any concerns worsening symptoms. Take ibuprofen as prescribed. Follow-up with urologist provided. Drink plenty of fluids. Could potentially be a kidney stone. Return if any other concerns worsening symptoms. Please go over all results of today's visit with your primary care doctor. Contact your primary care doctor to let them know you were here in the emergency room. There may be nonspecific findings which may not be related to your visit today here in the emergency room but may require further evaluation and chronic monitoring by your primary care doctor. If you had a laceration today the chance of foreign body always remains. You should follow-up with your primary care doctor for recheck in 3-5 days for a wound check. If you had an x-ray done there is a chance that a fracture could have been missed on initial read and you should follow-up with your primary care doctor for repeat x-rays if symptoms persist. If your blood pressure was elevated here in the emergency room please have rechecked by her primary care doctor within the next 48 hours by your primary care doctor. If you were prescribed a narcotic here in the emergency room or any type of controlled substances you're not allowed to drive while taking this medication or operate any type of heavy machinery. Narcotics can make you feel lightheaded dizziness nausea and can cause constipation. You may need to quill picking machine operator a stool softener. Thank you for choosing [facility] emergency room. Please return to the emergency room immediately if you have any other concerns worsening of symptoms. Departure Forms: Customer Survey General Discharge Information Prescriptions: Current Visit Scripts Ibuprofen 1 TAB PO TID #30 TAB Comments Patient clinically looks well here in the emergency room. She is in no apparent distress. She is nontoxic-appearing. Looks suspicion for kidney stone. Follow -up with urologist. No suspicion for appendicitis. No acute abdomen. Seen here before for abdominal pain. History of ovarian cysts. Follow-up with OB/ COMPRESSION MOLDING MACHINE TENDER doctor. Return if any concerns worsening symptoms. Understands and agrees with plan of care. On phone here in the emergency room. Reevaluated multiple times. Continued to remain in no distress.
[2016-09-27 17:56] VITALS: BP 138/68
[2016-09-27 18:06] LABS: ABSOLUTE BASOPHIL COUNT 0 /CUMM (0.0-0.2); ABSOLUTE EOSINOPHIL COUNT 0.5 /CUMM (0.0-0.7); ABSOLUTE GRANULOCYTE CT 7.3 /CUMM (1.4-6.5); ABSOLUTE LYMPH COUNT 2.3 /CUMM (1.2-3.4); ABSOLUTE MONOCYTE COUNT 0.5 /CUMM (0.10-0.60); BASOPHIL % 0.4 % (0.0-2.0); GRANULOCYTE % 68.4 % (42.2-75.2); HEMATOCRIT 41.3 % (37-47); MEAN CORPUSCULAR HGB 30.7 PG (27.0-31.0); MEAN CORPUSCULAR HGB CONC 33.3 G/DL (33.0-37.0); MEAN CORPUSCULAR VOLUME 92.2 FL (81.0-99.0); MEAN PLATELET VOLUME 11.4 FL (7.4-10.4); PLATELET COUNT 179 /CUMM (130-400); RBC DISTRIBUTION WIDTH 12.9 % (11.5-14.5); RED BLOOD CELL CT 4.48 /CUMM (4.20-5.40); WHITE BLOOD CELL COUNT 10.7 /CUMM (4.8-10.8)
[2016-09-27] MEDS ORDERED: IBUPROFEN800 M1 PO (18:56)
== END 2016-09-27 19:11 ==
LOC: ERH 14:41
PROVIDERS: Physician Assistant Medical
DX: R10.32 Left lower quadrant pain (principal); R31.9 Hematuria, unspecified
CPT/HCPCS: 81001; 81025

== ENCOUNTER 2017-02-11 09:18 | Emergency (ER) | payer OTHER ==
[~2017-02-11] VITALS: Ht 165.1 cm; Wt 103.4 kg
[~2017-02-11 09:18] MED LIST changes: +AMOXICILLIN500 M2 PO; +CYCLOBENZAPRINE5 M2 PO; +FLUTICASONE PRO16 GM NASB; +NEOMYCIN-POLYMY10 ML OTIC; +REGLAN10 M1 PO
--- NOTE | 2017-02-11 11:14 | ED GI/GU/ABDOMINAL COMPLAINT ---
History of Present Illness General Chief Complaint: Abdominal Pain/Flank Pain Stated Complaint: RT SIDE ABDOMINAL PAIN Source: patient, family Exam Limitations: no limitations Vital Signs & Intake/Output Vital Signs & Intake/Output Vital Signs Date Time Temp Pulse Resp B/P B/P Pulse O2 O2 Flow FiO2 Mean Ox Delivery Rate 02/11 1224 97.5 70 18 107/54 98 Room Air 02/11 1148 98 Room Air 02/11 0920 96.6 103 18 126/79 97 Room Air Allergies Coded Allergies: ketorolac (From TORADOL) (Intermediate, rash 11/30/16) tramadol (Intermediate, RASH 11/30/16) oxycodone (VOMITING 11/30/16) Reconcile Medications Cetirizine HCl (Zyrtec) 10 MG TABLET 1 TAB PO DAILY ALLERGIES (Reported) Fexofenadine HCl (Santa Allergy) 180 MG TABLET 1 TAB PO DAILY ALLERGIES ( Reported) Hydrocodone/Acetaminophen (Vicodin 5-300 MG Tablet) 5 MG-300 MG TABLET 1 TAB PO BID PRN PAIN Metoclopramide HCl (Reglan) 10 MG TABLET 1 TAB PO 4 TIMES/DAY PRN NAUSEA Montelukast Sodium 10 MG TABLET 1 TAB PO DAILY ALLERGIES (Reported) Triage Note: 31 Y/O FEMALE C/O RLQ PAIN SINCE MIDNIGHT. STATES PAIN WOKE HER FROM SLEEP AND HAS BEEN CONSTANT SINCE. +NAUSEA, VOMIT X 2 PER PT. PT REPORTS HX OVARIAN CYSTS BUT STATES THIS FEELS "DIFFERENT". DENIES URINARY SYMPTOMS BUT REPORTS PAIN WORSENS WITH URINATION. DENIES FEVERS, C/O "CHILLS". TOOK TYLENOL LAST PM WITH NO RELIEF; TOOK 400MG MOTRIN AT 0600 WITH NO RELIEF. URINE SPECIMEN REQUESTED Triage Nurses Notes Reviewed? yes ? N Is pt currently ? No Onset: Abrupt Duration: constant Timing: recent history Quality/Severity: sharpness Severity Numbers: 7 Location: right flank, right lower quadrant Radiation: no radiation HPI: Patient is a 31-year-old female with past medical history of chronic abdominal pain who has been evaluated on multiple occasions in multiple hospitals for recurrent nausea vomiting and abdominal pain which patient states that yesterday evening while sleeping she was woke up with acute onset of right lower quadrant abdominal pain that she had 1 episodes of nonbloody nonbilious emesis. Patient states that the abdominal pain still continues today had 1 more episode of nonbloody nonbilious emesis this morning patient is afraid to try to drink or eat anything. Patient complains of localized right lower quadrant 5 out 10 pain denies any fever chills dysuria hematuria or vaginal bleeding or discharge chest pain shortness of breath or back pain Past History Travel History Traveled to [place] past 21 day No Medical History Any Pertinent Medical History? 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 No Review of Systems Review of Systems Constitutional: Reports: no symptoms. EENTM: Reports: no symptoms. Respiratory: Reports: no symptoms. Cardiovascular: Reports: no symptoms. GI: Reports: see HPI, abdominal pain. Genitourinary: Reports: no symptoms. Musculoskeletal: Reports: no symptoms. Skin: Reports: no symptoms. Neurological/Psychological: Reports: no symptoms. Hematologic/Endocrine: Reports: no symptoms. Immunologic/Allergic: Reports: no symptoms. All Other Systems: Reviewed and Negative Physical Exam Physical Exam General Appearance: no apparent distress, alert, comfortable, obese Gastrointestinal: normal bowel sounds, soft, RIGHT FLANK/RLQ PAIN NO REBOUND NO PERITONEAL SIGNS Comments: HEENT: Normal EENT exam,. Neck: Supple, no lymphadenopathy, normal range of motion without pain or tenderness Cardiovascular: Regular rate and rhythms no murmurs rubs or gallops, normal JVP Respiratory: Chest nontender. No respiratory distress.breath sounds clear to auscultation bilaterally Extremity: No edema, no calf tenderness to palpation, normal and equal pulses. Neuro: Alert oriented x3, Skin: No appreciable rash on exposed skin, skin is warm and dry. Psych: Mood and affect is normal, memory and judgment is normal. Core Measures ACS in differential dx? No Sepsis Present: No Sepsis Focused Exam Completed? No Progress Differential Diagnosis: AAA, AMI, appendicitis, biliary colic, bowel obstruction , colon cancer, cholecystitis, diverticulitis, ectopic , endometritis, esophageal varices, gastritis, hepatitis, hernia, hemorrhoids, ischemic bowel, inflamm bowel dis, intrauterine , kidney stone, Maribel-Dorcas tear, ovarian cyst, ovarian torsion, pancreatitis, PID/cervicitis, peptic ulcer, PUD/ GERD, perforated viscous, SBO, threatened AB, UTI/pyelo Plan of Care: Orders Procedure Date/time Status LIPASE 02/11 1115 Complete HUMAN BETA HCG SCREEN 02/11 1115 Complete COMPREHENSIVE METABOLIC PANEL 02/11 1115 Complete CBC WITHOUT DIFFERENTIAL 02/11 1115 Complete AMYLASE 02/11 1115 Complete URINE 02/12 924 Complete URINALYSIS 02/12 924 Complete Laboratory Tests 02/11/17 1140: Anion Gap 12, Estimated GFR > 60, BUN/Creatinine Ratio 12.5, Glucose 95, Calcium 9.3, Total Bilirubin 0.4, AST 28, ALT 49, Alkaline Phosphatase 89, Total Protein 7.8, Albumin 4.4, Globulin 3.4, Albumin/Globulin Ratio 1.3, Amylase 49, Lipase 37, Total Beta HCG NEGATIVE, CBC w Diff NO MAN DIFF REQ, RBC 4.50, MCV 91.1, MCH 31.3 H, RDW 12.9, MPV 10.1, Gran % 70.7, Lymphocytes % 20.0 L, Monocytes % 3.9 , Eosinophils % 5.0, Basophils % 0.4, Absolute Granulocytes 6.1, Absolute Lymphocytes 1.7, Absolute Monocytes 0.3, Absolute Eosinophils 0.4, Absolute Basophils 0, PUBS MCHC 34.4 02/11/17 1130: Urinalysis LIGHT H, Urine Color YEL, Urine Clarity HAZY H, Urine pH 6.0, Ur Specific [place] 1.020, Urine Protein NEG, Urine Ketones NEG, Urine Nitrite NEG, Urine Bilirubin NEG, Urine Urobilinogen 0.2, Ur Leukocyte Esterase NEG, Ur Microscopic SEDIMENT EXAMINED, Urine RBC 15-25 H, Urine WBC RARE, Ur Epithelial Cells PACKD H, Urine Bacteria MANY H, Urine Mucus RARE, Urine Hemoglobin MOD H, Urine Glucose NEG, Urine Test NEGATIVE Patient on initial examination was resting comfortably at bedside no apparent distress. Patient does have hematuria and right-sided flank pain which or suspicion of renal colic ultrasound will be ordered. Patient had no improvement with IV Tylenol of pain patient did have improvement of nausea Patient still resting comfortably at bedside after multiple reexaminations. Ultrasound was unremarkable blood work unremarkable however hematuria does exist with there is consideration of renal colic. Patient was able tolerate by mouth. No concern at this time of appendicitis however this is of my differential and I strongly advised patient to return to emergency room if fever or worsening pain or persistent vomiting does occur and she will comply. Diagnostic Imaging: Viewed by Me: Ultrasound. Radiology Impression: no acute abnormality Initial ED EKG: none Comments: PATIENT: JESSICA REYES PRESENT AGE: 31 PATIENT ACCOUNT NO: [id number] : 84 LOCATION: [facility] ORDERING PHYSICIAN: Barney BAUMAN SERVICE DATE: 02/11/17 EXAM TYPE: US - US-RENAL/KIDNEY EXAMINATION: US RETROPERITONEAL COMPLETE (RENAL) CLINICAL INFORMATION: Right flank pain. Evaluate for kidney stone.. COMPARISON: CT abdomen pelvis 08/13/2016 and renal ultrasound 04/30/2016 TECHNIQUE: Real-time imaging of the kidneys and bladder. Examination mildly limited secondary to overlying bowel gas. FINDINGS: RIGHT KIDNEY: 11.2 x 4.2 x 6.5 cm (SAG x AP x TRV). Incomplete visualization of the lower pole secondary to overlying bowel gas. The kidney is normal in size, contour, and echogenicity. Renal cortical thickness is normal. No calculi or focal parenchymal lesions. No hydronephrosis. LEFT KIDNEY: 10.8 x 5.7 x 5.4 cm (SAG x AP x TRV). The kidney is normal in size, contour, and echogenicity. Renal cortical thickness is normal. No calculi or focal parenchymal lesions. No hydronephrosis. BLADDER: The bladder is decompressed and therefore cannot be accurately evaluated. Bilateral ureteral jets are demonstrated. IMPRESSION: Unremarkable sonographic imaging of the kidneys. Specifically, no renal calculi or hydronephrosis identified. The bladder cannot be accurately evaluated as it was decompressed. DICTATED BY: Kashmir Aviles MD DATE/TIME DICTATED:02/11/171407 Departure Departure Disposition: HOME OR SELF CARE Condition: Stable Clinical Impression Primary Impression: Abdominal pain Secondary Impressions: Renal colic on right side Referrals: Timothy MESSINA,Marshal Bishop MD,Vinicius (PCP/Family) Additional Instructions: As discussed begin drinking plenty of water for hydration if symptoms worsen return to emergency. Begin the prescription of Vicodin for pain and Reglan for nausea. This week follow-up with urologist Dr. SHELDON for further evaluation treatment. prescription is waiting at [facility] Departure Forms: Customer Survey General Discharge Information Prescriptions: Current Visit Scripts Hydrocodone/Acetaminophen (Vicodin 5-300 MG Tablet) 1 TAB PO BID PRN PAIN #6 TAB Metoclopramide HCl (Reglan) 1 TAB PO 4 TIMES/DAY PRN NAUSEA #15 TAB
[2017-02-11 11:47] LABS: ABSOLUTE BASOPHIL COUNT 0 /CUMM (0.0-0.2); ABSOLUTE EOSINOPHIL COUNT 0.4 /CUMM (0.0-0.7); ABSOLUTE GRANULOCYTE CT 6.1 /CUMM (1.4-6.5); ABSOLUTE LYMPH COUNT 1.7 /CUMM (1.2-3.4); ABSOLUTE MONOCYTE COUNT 0.3 /CUMM (0.10-0.60); BASOPHIL % 0.4 % (0.0-2.0); GRANULOCYTE % 70.7 % (42.2-75.2); MEAN CORPUSCULAR HGB 31.3 PG (27.0-31.0); MEAN CORPUSCULAR HGB CONC 34.4 G/DL (33.0-37.0); MEAN CORPUSCULAR VOLUME 91.1 FL (81.0-99.0); MEAN PLATELET VOLUME 10.1 FL (7.4-10.4); PLATELET COUNT 198 /CUMM (130-400); RBC DISTRIBUTION WIDTH 12.9 % (11.5-14.5); WHITE BLOOD CELL COUNT 8.6 /CUMM (4.8-10.8)
--- NOTE | 2017-02-11 14:15 | ULTRASOUND REPORT ---
EXAMINATION: US RETROPERITONEAL COMPLETE (RENAL) CLINICAL INFORMATION: Right flank pain. Evaluate for kidney stone.. COMPARISON: CT abdomen pelvis 08/13/2016 and renal ultrasound 04/30/2016 TECHNIQUE: Real-time imaging of the kidneys and bladder. Examination mildly limited secondary to overlying bowel gas. FINDINGS: RIGHT KIDNEY: 11.2 x 4.2 x 6.5 cm (SAG x AP x TRV). Incomplete visualization of the lower pole secondary to overlying bowel gas. The kidney is normal in size, contour, and echogenicity. Renal cortical thickness is normal. No calculi or focal parenchymal lesions. No hydronephrosis. LEFT KIDNEY: 10.8 x 5.7 x 5.4 cm (SAG x AP x TRV). The kidney is normal in size, contour, and echogenicity. Renal cortical thickness is normal. No calculi or focal parenchymal lesions. No hydronephrosis. BLADDER: The bladder is decompressed and therefore cannot be accurately evaluated. Bilateral ureteral jets are demonstrated. IMPRESSION: Unremarkable sonographic imaging of the kidneys. Specifically, no renal calculi or hydronephrosis identified. The bladder cannot be accurately evaluated as it was decompressed.
[2017-02-11] MEDS ORDERED: REGLAN10 M1 PO (14:30)
[2017-02-11] MEDS ORDERED: VICODIN 5-3001 EACH PO (14:30)
[2017-02-11 14:42] VITALS: BP 110/70
[2017-03-28] MEDS ORDERED: FLONASE ALLERG9.9 ML NAS (15:43)
== END 2017-02-11 14:40 ==
LOC: ERH 09:18
PROVIDERS: Physician Assistant
DX: N23 Unspecified renal colic (principal)
CPT/HCPCS: 76775; 81001; 81025; 96374; 96375; J0131; J2765

== ENCOUNTER 2017-08-28 20:20 | Emergency (ER) | payer OTHER ==
[~2017-08-28 20:20] MED LIST changes: +FLONASE ALLERG9.9 ML NAS
--- NOTE | 2017-08-28 20:50 | ED GI/GU/ABDOMINAL COMPLAINT ---
History of Present Illness General Chief Complaint: Abdominal Pain/Flank Pain Stated Complaint: PT IS HERE FOR ABDOMINAL PAIN Source: patient, old records Exam Limitations: no limitations Vital Signs & Intake/Output Vital Signs & Intake/Output Vital Signs Date Time Temp Pulse Resp B/P B/P Pulse O2 O2 Flow FiO2 Mean Ox Delivery Rate 08/28 2025 96.8 94 16 157/89 96 Room Air Allergies Coded Allergies: ketorolac (From TORADOL) (Intermediate, rash 11/30/16) tramadol (Intermediate, RASH 11/30/16) oxycodone (VOMITING 11/30/16) Reconcile Medications Cetirizine HCl (Zyrtec) 10 MG TABLET 1 TAB PO DAILY ALLERGIES (Reported) Fexofenadine HCl ([facility] Allergy) 180 MG TABLET 1 TAB PO DAILY ALLERGIES ( Reported) Fluticasone Propionate (Flonase Allergy Relief) 50 MCG/ACTUATION SPRAY.SUSP 2 SPRAY KRISS ONCE DAILY PRN CONGESTION Hydrocodone/Acetaminophen (Vicodin 5-300 MG Tablet) 5 MG-300 MG TABLET 1 TAB PO BID PRN PAIN Hyoscyamine Sulfate (Levsin-Sl) 0.125 MG TAB.SUBL 1-2 TAB SL Q4P PRN abdominal pain Loperamide HCl (Imodium A-D) 2 MG TABLET 0 PO SEE ADMIN CRITERIA PRN diarrhea 1 tab after each loose stool up to 7 per day Metoclopramide HCl (Reglan) 10 MG TABLET 1 TAB PO 4 TIMES/DAY PRN NAUSEA Montelukast Sodium 10 MG TABLET 1 TAB PO DAILY ALLERGIES (Reported) Ondansetron (Zofran Odt) 4 MG TAB.RAPDIS 1 TAB SL TID PRN n/v Triage Note: PER PT ABD PAIN AND DIARRHEA X 2 DAYS DENIES FEVERS LMP 06/23/17 ON [facility] Triage Nurses Notes Reviewed? yes LMP (ages 10-50): unknown ? n Is pt currently ? No Onset: Just prior to arrival Duration: day(s):, constant, continues in ED Timing: recent history Quality/Severity: aching, cramping, moderate, vomiting Location: generalized abdomen Radiation: no radiation Activities at Onset: none Prior Abdominal Problems: similar symptoms Past Sexual History: Unobtainable at this time Modifying Factors: Worsens With: eating. Associated Symptoms: abdominal pain, diarrhea, fatigue, loss of appetite, nausea /vomiting HPI: 2 days prior to admission patient complains of nausea vomiting frequent loose watery stool anorexia. She denies fever chills chest pain cough shortness of breath headache dysuria rash bleeding ill contacts bad food exposure. Past History Travel History Traveled to [place] past 21 day No Medical History Any Pertinent Medical History? 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 No Review of Systems Review of Systems Constitutional: Reports: see HPI, malaise. EENTM: Reports: no symptoms. Respiratory: Reports: no symptoms. Cardiovascular: Reports: no symptoms. GI: Reports: see HPI, abdominal pain, diarrhea, nausea, vomiting. Genitourinary: Reports: no symptoms. Musculoskeletal: Reports: no symptoms. Skin: Reports: no symptoms. Neurological/Psychological: Reports: no symptoms. Hematologic/Endocrine: Reports: no symptoms. Immunologic/Allergic: Reports: no symptoms. All Other Systems: Reviewed and Negative Physical Exam Physical Exam General Appearance: well developed/nourished, alert, awake, anxious, mild distress, obese Head: atraumatic, normal appearance Eyes: Bilateral: normal appearance, PERRL, EOMI, normal inspection. Ears, Nose, Throat, Mouth: hearing grossly normal, dry mucous membranes Neck: normal inspection, supple, full range of motion, normal alignment Respiratory: normal breath sounds, chest non-tender, no respiratory distress, quiet respiration, lungs clear Cardiovascular: regular rate/rhythm, normal peripheral pulses, norml femoral pulses equa Peripheral Pulses: 4+ carotid (R), 4+ carotid (L) Gastrointestinal: normal bowel sounds, soft, non-tender, no organomegaly Back: normal inspection, normal range of motion, no vertebral tenderness Extremities: normal range of motion, no ligament instability Neurologic/Psych: no motor/sensory deficits, awake, alert, oriented x 3, normal gait, normal mood/affect, compliance paralegal II-XII nml as tested Skin: intact, normal color, warm/dry Core Measures ACS in differential dx? No Sepsis Present: No Sepsis Focused Exam Completed? No Progress Differential Diagnosis: biliary colic, gastritis, PUD/GERD, UTI/pyelo Plan of Care: Orders Procedure Date/time Status URINALYSIS 08/28 2044 Active MAGNESIUM 08/28 2044 Complete LIPASE 08/28 2044 Complete HUMAN BETA HCG SCREEN 08/28 2044 Complete COMPREHENSIVE METABOLIC PANEL 08/28 2044 Complete CBC WITHOUT DIFFERENTIAL 08/28 2044 Complete Laboratory Tests 08/28/172057: Anion Gap 10, Estimated GFR > 60, BUN/Creatinine Ratio 10.0, Glucose 117 H, Calcium 9.1, Magnesium 1.6, Total Bilirubin 0.8, AST 37 H, ALT 21, Alkaline Phosphatase 103, Total Protein 7.7, Albumin 4.0, Globulin 3.7, Albumin/Globulin Ratio 1.1, Lipase 48, Total Beta HCG NEGATIVE, CBC w Diff NO MAN DIFF REQ, RBC 4.49, MCV 91.7, MCH 31.1 H, MCHC 33.9, RDW 13.2, MPV 10.9 H, Gran % 66.0, Lymphocytes % 22.2, Monocytes % 5.7, Eosinophils % 5.7 H, Basophils % 0.4, Absolute Granulocytes 6.8 H, Absolute Lymphocytes 2.3, Absolute Monocytes 0.6, Absolute Eosinophils 0.6, Absolute Basophils 0 Initial ED EKG: none Comments: Patient requests discharge as her son is now ill and does not want to wait for completion of diagnostic exam. She feels better. Departure Departure Time of Disposition: 2135 Disposition: HOME OR SELF CARE Condition: Stable Clinical Impression Primary Impression: Gastroenteritis Secondary Impressions: Dehydration Referrals: Patient Has No Primary Care Dr (PCP/Family) Additional Instructions: Clear liquids in small amounts for 12-24 hours until better Departure Forms: Customer Survey General Discharge Information Prescriptions: Current Visit Scripts Ondansetron (Zofran Odt) 1 TAB SL TID PRN n/v #10 TAB Loperamide HCl (Imodium A-D) 0 PO SEE ADMIN CRITERIA PRN diarrhea #24 TAB 1 tab after each loose stool up to 7 per day Hyoscyamine Sulfate (Levsin-Sl) 1-2 TAB SL Q4P PRN abdominal pain #30 TAB
[2017-08-28 21:11] LABS: ABSOLUTE BASOPHIL COUNT 0 /CUMM (0.0-0.2); ABSOLUTE EOSINOPHIL COUNT 0.6 /CUMM (0.0-0.7); ABSOLUTE GRANULOCYTE CT 6.8 /CUMM (1.4-6.5); ABSOLUTE LYMPH COUNT 2.3 /CUMM (1.2-3.4); ABSOLUTE MONOCYTE COUNT 0.6 /CUMM (0.10-0.60); BASOPHIL % 0.4 % (0.0-2.0); EOSINOPHIL % 5.7 % (0-5); HEMATOCRIT 41.2 % (37-47); MEAN CORPUSCULAR HGB 31.1 PG (27.0-31.0); MEAN CORPUSCULAR HGB CONC 33.9 G/DL (33.0-37.0); MEAN CORPUSCULAR VOLUME 91.7 FL (81.0-99.0); MEAN PLATELET VOLUME 10.9 FL (7.4-10.4); PLATELET COUNT 229 /CUMM (130-400); RBC DISTRIBUTION WIDTH 13.2 % (11.5-14.5); RED BLOOD CELL CT 4.49 /CUMM (4.20-5.40); WHITE BLOOD CELL COUNT 10.4 /CUMM (4.8-10.8)
[2017-08-28] MEDS ORDERED: IMODIUM A-D2 M1 PO (21:37)
[2017-08-28] MEDS ORDERED: LEVSIN-SL0.125 MG SL (21:37)
[2017-08-28] MEDS ORDERED: ZOFRAN ODT4 M1 SL (21:37)
[2017-08-28 21:47] VITALS: BP 144/67
== END 2017-08-28 21:48 ==
LOC: ERH 20:20
PROVIDERS: Emergency Medicine
DX: K52.9 Noninfective gastroenteritis and colitis, unspecified (principal); E86.0 Dehydration
CPT/HCPCS: 96361; 96374; 96375; J0131; J2765